=== PATIENT | male | born 1960 | race Caucasian/White ===

== ENCOUNTER 2023-11-29 16:47 | Observation (INO) ==
--- NOTE | 2023-11-29 16:55 | ED Triage Note ---
Date of Service November 29, 2023 Provider in Triage Author: Tito Harris. History of Present Illness This patient was briefly evaluated while in triage. An abbreviated physical exam was performed. This patient is a 63-year-old Male who presents to the ED for evaluation of left lateral chest pain, left arm pain, left jaw pain that began 3 hours ago. Typing on computer when the symptoms began. No dyspnea. Recently had 3 stents placed in [place] 2 weeks ago urgently. Physical Exam CONSTITUTIONAL: in no acute pain or distress, resting comfortably SKIN: pink, warm, dry RESPIRATORY: in no respiratory distress Initial orders for labs and / or imaging were placed and patient was placed into an exam room. Please see further documentation for the full ED course.
[2023-11-29 17:19] LABS: Basophils # (auto) 0.06 K/uL (0.00-0.20); Basophils % (auto) 0.6 %; Eosinophils # (auto) 0.21 K/uL (0.00-0.50); Eosinophils % (auto) 2.2 %; Hematocrit (blood only) 43.4 % (42.0-52.0); Hemoglobin 14.2 g/dl (14.0-18.0); Immature Granulocytes # (auto) 0.03 K/uL (0.01-0.20); Immature Granulocytes % (auto) 0.3 %; Lymphocytes # (auto) 2.94 K/uL (1.20-3.40); Lymphocytes % (auto) 31.1 %; Mean Corpuscular Hemoglobin 27.9 pg (25.0-34.0); Mean Corpuscular Hgb Conc 32.7 g/dL (32.0-36.0); Mean Corpuscular Volume 85.3 fL (80.0-100.0); Mean Platelet Volume 10.5 fL (9.4-12.4); Monocytes # (auto) 0.83 K/uL (0.11-0.59); Monocytes % (auto) 8.8 %; Neutrophils # (auto) 5.39 K/uL (1.40-6.50); Platelet Count 190 K/uL (130-400); RDW Coefficient of Variation 12.5 % (11.5-14.5); RDW Standard Deviation 38.6 fL (36.4-46.3); Red Blood Count 5.09 M/uL (4.70-6.10); White Blood Count 9.46 K/ul (4.8-10.8)
[2023-11-29] MEDS: NITROGLYCERIN 2% OINTMENT 30GM TUBE EXT STA (17:31)
[2023-11-29] MEDS: NITROGLYCERIN 2% OINTMENT 30GM TUBE EXT ONE (17:32)
[2023-11-29 17:37] LABS: Albumin Globulin Ratio 1.4 (0.9-2); Albumin Level 4.4 gm/dl (3.4-5.0); BUN Creatinine Ratio 15.8 (10-20); Bilirubin,Total 0.5 mg/dl (0.2-1.0); Calcium 9.7 mg/dl (8.6-10.3); Creatinine Clr Calc Pharmacy 148.8 ml/min; Est GFR (Non-African American) 95.7 ml/min; Globulin 3.2 gm/dl (2.5-4.0); Magnesium 2.1 mg/dl (1.7-2.4); Potassium 4.1 mmol/L (3.5-5.1); Total Protein 7.6 gm/dl (6.0-8.3)
--- NOTE | 2023-11-29 17:38 | XRay Report ---
SINGLE VIEW CHEST CLINICAL HISTORY: Atypical chest pain. FINDINGS: An AP, portable, upright chest radiograph is obtained. No prior studies are available for c omparison at the time of dictation. The heart is enlarged. The pulmonary vasculature is noncongested. The lungs and pleural spaces are clear. No pneumothorax is seen. The bony thorax is grossly intact. IMPRESSION: Cardiomegaly with no active disease in the chest. ACT 112: Negative or not required by law. Electronically signed by: Lisandro Bae M.D. 11/29/2023 5:36 PM
[2023-11-29 17:42] LABS: Troponin I High Sensitivity 10.4 pg/ml (0-20)
[2023-11-29 17:46] LABS: Partial Thromboplastin Ratio 0.9; Partial Thromboplastin Time 25 Seconds (21-31); Prothrombin Time 10.8 Seconds (9.0-12.0)
--- NOTE | 2023-11-29 17:51 | Emergency Department Note ---
Impression & Plan Chest pain, History of coronary artery disease, S/P coronary artery stent placement ED Provider Note NAME: TAE DONALD AGE: 63 SEX: M : 1960 ARRIVES VIA: Walk-In INFORMANT: [Patient] ED PROVIDER(S): [Lisandro Miller MD] CHIEF COMPLAINT: Chest pain HISTORY OF PRESENT ILLNESS: The patient is a 63-year-old male who states that he has had about 3 hours of chest pain that began while he was sitting. The pain does not worsen with exertion but he does feel some pain in the left jaw and a slight amount of numbness to the left hand. There is no shortness of breath, no nausea, there is no sweating. Patient states that he had similar pain 2 weeks ago and was found to have occlusion of one of his coronary stents. He had 3 stents placed during the hospitalization. He currently has 6 total stents. There has been no cough or congestion. No fall or trauma. He states that he was to be prescribed nitroglycerin but has not yet started the medication. He is currently on aspirin and Plavix. He is not followed by cardiology yet, he just moved to the area. PMHx/PSHx/Social Hx: See Below PHYSICAL EXAM: GENERAL: Patient is in no acute distress. HEENT: No acute trauma, normocephalic atraumatic, mucous membranes moist, no nasal congestion. NECK: No stridor, no adenopathy, no meningismus, trachea is midline. LUNGS: Clear to auscultation bilaterally, no wheeze, no rhonchi, breath sounds equal. HEART: Without murmurs gallops or rubs, regular rate and rhythm. Chest: Nontender chest wall. ABDOMEN: Soft, nontender, no peritonitis. EXTREMITIES: No cyanosis, full range of motion of all the joints without pain or difficulty. NEUROLOGIC: Oriented x 3, no acute motor or sensory deficits, no focal weakness. SKIN: No jaundice, no diaphoresis. DIFFERENTIAL DIAGNOSIS: ME, angina, musculoskeletal pain, anemia, electrolyte imbalance, aortic dissection, among others. EMERGENCY DEPARTMENT PROCEDURES: MEDICAL DECISION MAKING: There is no leukocytosis or concerning anemia. There is a normal platelet count. No coagulopathy. No renal failure or significant electrolyte abnormality. No concerning liver enzyme elevation. No evidence for pancreatitis. Chest x-ray shows some cardiomegaly, no pneumonia or pneumothorax. ECG shows a sinus rhythm with an occasional PVC, no acute ischemia. Cardiac enzyme testing x 1 is not consistent with acute cardiac injury. The patient presents with chest pain reminiscent of previous angina. He received 2 L of nitroglycerin paste, he has had resolution of symptoms. I do believe the patient requires a hospital stay for further workup. He just had 3 coronary stents placed. He presents with chest pain reminiscent of his previous anginal discomfort. The patient is aware of the need for the hospital stay, I did speak with case management, the on-call hospitalist was consulted. Prior/Outside records/notes reviewed: None ECG per my interpretation: Indication was chest pain. The ECG shows a sinus rhythm with an occasional PVC. The rate is 74. There is no ST elevation, QTc is 419. Continuous Cardiac Monitoring per my interpretation: An order was placed for continuous cardiac monitoring. The monitor shows a rate of 74 with normal sinus rhythm. Imaging/x-ray results per my interpretation: Chest x-ray does not show mediastinal widening, pneumonia or pneumothorax. Some cardiomegaly was seen. Chronic Medical/Social conditions affecting care: Coronary artery disease. Care/Management discussed with: Case management, the on-call hospitalist. Level of care consideration(s): After review of the information above and other included data: --I believe the patient requires escalation of care to admission DISPOSITION: Admission with cardiology consult Past Med/Surg History Medical History History of coronary artery disease Surgical History S/P coronary artery stent placement Social History Smoking Status: Never smoker Feels Safe at Home: Yes Results & Data (ED) Vital Signs Vital Signs - 24 hr 11/29/23 16:54 11/29/23 17:01 11/29/23 17:06 Temperature 36.9 C Temperature Source Oral Pulse Rate 71 Pulse Rate [Apical] 72 Respiratory Rate 18 19 Respiratory Effort / Characteristics Non-Labored Non-Labored Spontaneous Non-Labored Respiratory Depth Normal Normal Normal Respiratory Pattern Regular Blood Pressure 167/105 H Blood Pressure [Right Arm] 176/103 H Blood Pressure Mean 125 Blood Pressure Mean [Right Arm] 127 Pulse Oximetry 95 97 Oxygen Delivery Method Room Air Room Air Sepsis Recent Fever Within 48 Hours No Sepsis New/Unexplained Change in Mental Status No Sepsis Action Taken by Nursing No Action Required 11/29/23 17:32 11/29/23 17:39 Temperature Temperature Source Pulse Rate 74 Pulse Rate [Apical] 66 Respiratory Rate 15 Respiratory Effort / Characteristics Non-Labored Respiratory Depth Normal Respiratory Pattern Regular Blood Pressure Blood Pressure [Right Arm] 175/85 H Blood Pressure Mean Blood Pressure Mean [Right Arm] 115 Pulse Oximetry 96 Oxygen Delivery Method Sepsis Recent Fever Within 48 Hours Sepsis New/Unexplained Change in Mental Status Sepsis Action Taken by Custodial Medications Current Medication List: was personally reviewed by me Laboratory Data Attestation: I reviewed the patient's lab results. 11/29/23 17:04 11/29/23 17:04 Lab Results 11/29/23 Range/Units 17:04 WBC 9.46 (4.8-10.8) K/ul RBC 5.09 (4.70-6.10) M/uL Hgb 14.2 (14.0-18.0) g/dl Hct 43.4 (42.0-52.0) % MCV 85.3 (80.0-100.0) fL MCH 27.9 (25.0-34.0) pg MCHC 32.7 (32.0-36.0) g/dL RDW Std Deviation 38.6 (36.4-46.3) fL RDW Coeff of Priscilla 12.5 (11.5-14.5) % Plt Count 190 (130-400) K/uL MPV 10.5 (9.4-12.4) fL Immature Gran % (Auto) 0.3 % Neut % (Auto) 57.0 % Lymph % (Auto) 31.1 % [place] % (Auto) 8.8 % Eos % (Auto) 2.2 % Baso % (Auto) 0.6 % Neut # (Auto) 5.39 (1.40-6.50) K/uL Lymph # (Auto) 2.94 (1.20-3.40) K/uL [place] # (Auto) 0.83 H (0.11-0.59) K/uL Eos # (Auto) 0.21 (0.00-0.50) K/uL Baso # (Auto) 0.06 (0.00-0.20) K/uL Immature Gran # (Auto) 0.03 (0.01-0.20) K/uL PT 10.8 (9.0-12.0) Seconds INR 1.0 (0.9-1.1) APTT 25 (21-31) Seconds PTT Ratio 0.9 Sodium 138 (136-145) mmol/L Potassium 4.1 (3.5-5.1) mmol/L Chloride 106 (98-107) mmol/L Carbon Dioxide 26 (21-32) mmol/L Anion Gap 6 (3-11) BUN 12 (6-23) mg/dl Creatinine 0.76 (0.6-1.4) mg/dl Est Cr Clr Drug Dosing 148.8 ml/min Est GFR ( Amer) 111.0 ml/min Est GFR (Non-Af Amer) 95.7 ml/min BUN/Creatinine Ratio 15.8 (10-20) Glucose 118 H (70-99(Fasting)) mg/dl Calcium 9.7 (8.6-10.3) mg/dl Magnesium 2.1 (1.7-2.4) mg/dl Total Bilirubin 0.5 (0.2-1.0) mg/dl AST 16 (13-39) U/L ALT 22 (7-52) U/L Alkaline Phosphatase 72 (34-104) U/L Troponin I High Sens 10.4 (0-20) pg/ml Total Protein 7.6 (6.0-8.3) gm/dl Albumin 4.4 (3.4-5.0) gm/dl Globulin 3.2 (2.5-4.0) gm/dl Albumin/Globulin Ratio 1.4 (0.9-2) Lipase 31 (11-82) U/L Administered Medications Discontinued Medications Nitroglycerin (Nitroglycerin 2% Ointment 30gm Tube) Confirm Administered Dose 36 inch EXT .STK-MED ONE Stop: 11/29/23 17:12 Last Admin: 11/29/23 17:32 Dose: Not Given Documented By: DORIE Nitroglycerin (Nitroglycerin 2% Ointment 30gm Tube) 2 inch EXT NOW STA Stop: 11/29/23 17:28 Last Admin: 11/29/23 17:31 Dose: 2 inch Documented By: BRJ Imaging Data Radiologist's Impression: Chest X-Ray 11/29/23 16:55 SINGLE VIEW CHEST CLINICAL HISTORY: Atypical chest pain. FINDINGS: An AP, portable, upright chest radiograph is obtained. No prior studies are available for comparison at the time of dictation. The heart is enlarged. The pulmonary vasculature is noncongested. The lungs and pleural spaces are clear. No pneumothorax is seen. The bony thorax is grossly intact. IMPRESSION: Cardiomegaly with no active disease in the chest. ACT 112: Negative or not required by law. Electronically signed by: Lisandro Bae M.D. 11/29/2023 5:36 PM Discharge Plan Visit Data Chief Complaint: Chest Pain Stated Complaint: CHEST PAIN,HEART STENT PUT IN 2WKS AGO ED Provider: Lisandro Miller Discharge Problem: Chest pain, History of coronary artery disease, S/P coronary artery stent placement Patient Disposition: Admitted As Inpatient Condition: Fair Forms Stand Alone Forms: [facility] Referrals Referrals: PCP,NO [Physician] - Discharge Problem: Chest pain Qualifiers: Chest pain type: unspecified Qualified Code(s): R07.9 - Chest pain, unspecified
--- NOTE | 2023-11-29 18:13 | History & Physical Report ---
Date of Service November 29, 2023 Assessment & Plan (1) Chest pain: Plan: Pt is a 63 yo male with PMH of CAD s/p 6 stents (3 placed 9 years ago with first MD, 3 placed 2 weeks ago after second MD), HTN, and DM presenting due to chest pain. Chest pain - in the ER, pt was hemodynamically stable with hypertension; all lab work WNL - EKG showed sinus rhythm w/ occasional PVCs; no ST changes- continue EKGs PRN with chest pain - CXR showed cardiomegaly - no hx of echo in system, although pt states he had one 2 weeks prior to his stents- per pt, this showed an enlarged compartment of his heart and calcification of his mitral valve but normal function of his heart; echo ordered for AM - first trop negative at 10; repeat at 2 hrs and trend to peak q6hr if elevated - continue home plavix, carvedilol, atorvastatin and lisinopril - cardiology consult placed as pt needing to establish with local cardiology; pending clinical course, discussion may be needed concerning possible cath - trend CBC, BMP, and lipid panel ordered for AM Type 2 DM - pt states his A1c has been fluctuating between 6.3-7.0%; A1c ordered for AM - will hold home dapagliflozin and ozempic - will cover with SSI; may need to add long acting if BS uncontrolled/requiring large amounts of short acting insulin Diet: heart healthy, NPO at midnight VTE ppx: deferring given presumed short hospital stay; if prolonged, would add chemoppx Code: full; pt's is medical decision maker if pt unable to make his own decisions Dispo: med/tele (2) S/P coronary artery stent placement: (3) History of coronary artery disease: (4) Type 2 diabetes mellitus: (5) PEDRO (obstructive sleep apnea): Plan: CPAP HS History of Present Illness Chief Complaint: chest pain Primary Care Provider: NO PCP Pt is a 63 yo male with PMH of CAD s/p 6 stents (3 placed 9 years ago with first MD, 3 placed 2 weeks ago after second MD), HTN, and DM presenting due to chest pain. The pt noted that his chest pain started around 2PM today. He was working on a computer when it started. The pain was mild and came with left sided jaw discomfort and left arm tingling/numbness. He denies N/V, sweating, lightheadedness, or dizziness. The pain did not worsen with exertion, but this pain was very similar to his pain a few weeks ago so he wanted to be evaluated. Of note, pt's most recent stent placement was done at a hospital in [place] where he currently lives. Him and his are moving to the [facility] in March of this year. In the ER, the pt was given nitro. This relieved his pain. Allergies Allergy/AdvReac Type Severity Reaction Status Date / Time No Known Allergies Allergy Unverified 11/29/23 19:03 Home Medications Medication Instructions Recorded Confirmed Type aspirin 11/29/23 History atorvastatin 20 mg tablet 40 mg PO HS 11/29/23 11/29/23 History carvedilol 6.25 mg tablet 6.25 mg PO BID 11/29/23 11/29/23 History cholecalciferol (vitamin D3) 25 0 mcg PO DAILY 11/29/23 11/29/23 History mcg (1,000 unit) tablet (Vitamin D3) clopidogrel 75 mg tablet 75 mg PO QAM 11/29/23 11/29/23 History coenzyme Q10 100 mg capsule 0 mg PO DAILY 11/29/23 11/29/23 History (CoQ-10) dapagliflozin propanediol 10 mg 10 mg PO QAM 11/29/23 11/29/23 History tablet lisinopril 10 mg tablet 10 mg PO QAM 11/29/23 11/29/23 History gpdaayvbhznu-qyppadaa-bbtudo 1 tab PO DAILY 11/29/23 11/29/23 History tablet (Multivitamin 50 Plus tablet) omega-3 fatty acids 1,000 mg 2,000 mg PO DAILY 11/29/23 11/29/23 History capsule semaglutide 2 mg/dose (8 mg/3 mL) 2 mg subcut .Q7DAYS 11/29/23 11/29/23 History subcutaneous pen injector (Ozempic) tamsulosin 0.4 mg capsule 0.4 mg PO QPM 11/29/23 11/29/23 History turmeric 400 mg capsule 400 mg PO DAILY 11/29/23 11/29/23 History Past Med/Surg History Medical History (Updated 11/30/23 @ 08:24 by Parviz Reyes MD) PEDRO (obstructive sleep apnea) History of coronary artery disease Surgical History S/P coronary artery stent placement Social History Smoking Status: Never smoker Second Hand Exposure: No; Do You Dip or Chew Tobacco: No; Hx Alcohol Use: No Hx Substance Use: Yes Last Used Substance: Days (ago) Last Used Substance Other:: x1 week ago Preferred Language: Azeri Communication Ability: Effective 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 No rhonchi, wheezes, or crackles. No increased work of breathing GI: soft, nondistended, nontender, + bowel sounds MSK: no gross deformities noted Skin: warm, dry, no rashes Neuro: alert, oriented, no FND noted Psych: mood and affect congruent Results & Data Results & Data Vital Signs (Past 12 Hours) Vital Signs Temp Pulse Pulse Resp BP BP Pulse Ox 11/29/23 17:39 74 11/29/23 17:32 66 15 175/85 H 96 11/29/23 17:06 72 19 176/103 H 97 11/29/23 16:54 36.9 C 71 18 167/105 H 95 O2 Del Method 11/29/23 17:39 11/29/23 17:32 11/29/23 17:06 Room Air 11/29/23 16:54 Room Air Supervising Physician Co-Signing Physician Notes I personally saw and examined the patient. I verified all fernando points and agree with resident physician Dr Jade Gates, with the following exceptions and/or additions: 63 year old male with known coronary artery disease presents to the ER with chest pain. Started at 2pm and lasted until relieved with nitroglycerin in the ER around 5pm. O/E A&Ox3, HS RRR, no murmurs, Chest CTAB, Abdo SNT, no pedal edema A/P Chest pain - serial troponins, TTE, stop nitro paste to see if pain/BP recurs, consult cardiology to determine if further workup recommended in the morning. Coronary artery disease - ASA, clopidogrel, carvedilol, lisinopril, atorvastatin Resident Activity Tracking Resident Involvement: Resident Care Provided Care Provided: Adult [facility] Medicine (1) Chest pain Chest pain type: unspecified Qualified Code(s): R07.9 - Chest pain, unspecified
[2023-11-29] MEDS ORDERED: MELATONIN 3 MG TAB PO PRN (19:10)
[2023-11-29] MEDS ORDERED: ONDANSETRON INJ 2 MG/ML 2 ML VIAL IV PRN (19:10)
[2023-11-29] MEDS ORDERED: ACETAMINOPHEN 325 MG TAB PO PRN (19:10)
[2023-11-29] MEDS ORDERED: DEXTROSE 50% 50 ML SYRINGE IV PRN (22:18)
[2023-11-29] MEDS ORDERED: CARBOHYDRATES FOR HYPOGLYCEMIA PO PRN (22:18)
[2023-11-29] MEDS ORDERED: GLUCAGON FOR INJ 1 MG VIAL SQ PRN (22:18)
[2023-11-29] MEDS ORDERED: GLUCOSE 10 TAB/TUBE PO PRN (22:18)
[2023-11-29] MEDS ORDERED: GLUCOSE 40% GEL 15 GM TUBE PO PRN (22:18)
[2023-11-29] MEDS: carvediloL 6.25 MG TAB PO SCH (23:07)
[2023-11-29] MEDS: ATORVASTATIN 40 MG TAB PO SCH (23:07)
[2023-11-29] MEDS: TAMSULOSIN HCL 0.4 MG CAP PO SCH (23:08)
[2023-11-29] MEDS: INSULIN ASPART PER UNIT CHARGE SC SCH (23:09)
[2023-11-30 06:05] LABS: Hematocrit (blood only) 37.8 % (42.0-52.0); Hemoglobin 12.8 g/dl (14.0-18.0); Mean Corpuscular Hgb Conc 33.9 g/dL (32.0-36.0); Mean Corpuscular Volume 85.5 fL (80.0-100.0); Mean Platelet Volume 10.9 fL (9.4-12.4); Platelet Count 171 K/uL (130-400); RDW Coefficient of Variation 12.7 % (11.5-14.5); RDW Standard Deviation 39.3 fL (36.4-46.3); Red Blood Count 4.42 M/uL (4.70-6.10); White Blood Count 7.56 K/ul (4.8-10.8)
[2023-11-30 06:29] LABS: BUN Creatinine Ratio 19.4 (10-20); Calcium 8.9 mg/dl (8.6-10.3); Chol HDL Ratio 2.9 (0-5); Creatinine Clr Calc Pharmacy 181.4 ml/min; Est GFR (African American) 120.7 ml/min; Est GFR (Non-African American) 104.1 ml/min; Potassium 3.9 mmol/L (3.5-5.1)
[2023-11-30 06:34] LABS: Troponin I High Sensitivity 9.3 pg/ml (0-20)
--- NOTE | 2023-11-30 07:50 | Hospitalist Progress Note ---
Date of Service November 30, 2023 Assessment & Plan (1) Chest pain: Plan: Pt is a 63 yo male with PMH of CAD s/p 6 stents (3 placed 9 years ago with first [place], 3 placed 2 weeks ago), HTN, and DM presenting due to chest pain. Chest pain - Vitals stable; all lab work WNL, including lipids and troponin x4. - EKG showed sinus rhythm w/ occasional PVCs; no ST changes- continue EKGs PRN with chest pain - CXR showed cardiomegaly - no hx of echo in system, will obtain echo today. - continue home DAPT, carvedilol, high dose atorvastatin and lisinopril - cardiology consult placed as pt needing to establish with local cardiology; pending clinical course, discussion may be needed concerning possible cath Type 2 DM - pt states his A1c has been fluctuating between 6.3-7.0%; A1c ordered for AM - will hold home dapagliflozin and ozempic - will cover with SSI; may need to add long acting if BS uncontrolled/requiring large amounts of short acting insulin Diet: heart healthy, NPO at midnight VTE ppx: deferring given presumed short hospital stay; if prolonged, would add chemoppx Code: full; pt's is medical decision maker if pt unable to make his own decisions Dispo: med/tele (2) S/P coronary artery stent placement: (3) History of coronary artery disease: (4) Type 2 diabetes mellitus: Admission and Anticipated Discharge Date Admission Date: November 29, 2023 Subjective Patient doing well this morning states that he still has some minor paresthesia of the jaw and left arm but no chest pain or shortness of breath, nausea, diaphoresis (which he had when he had his IA). 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 He has a history of IA with 3 stents and recently had the stents replaced 2 weeks prior with the cardiology group down in [place]. Review of Systems Review of Systems: As per HPI Physical Exam Constitutional: WD/WN, vitals as above Eyes: PERRL, conjunctivae normal, anicteric sclerae Respiratory: normal respiratory effort, lungs clear to auscultation Cardiovascular: RRR, no murmur, no edema Gastrointestinal (Abdomen): normal bowel sounds, soft, nontender, no hepatosplenomegaly Psychiatric: A+Ox3, euthymic affect Results & Data Results & Data Vital Signs (Past 12 Hours) Vital Signs Temp Pulse Pulse Resp BP BP Pulse Ox 11/30/23 07:00 67 11/30/23 03:19 36.7 C 64 18 123/64 95 11/29/23 22:15 36.5 C 62 18 137/81 94 11/29/23 22:15 36.4 C L 62 20 137/81 94 11/29/23 22:13 58 L 11/29/23 22:00 11/29/23 21:21 64 16 106/76 93 11/29/23 21:00 65 11/29/23 20:00 68 17 127/83 98 O2 Del Method 11/30/23 07:00 11/30/23 03:19 Room Air 11/29/23 22:15 Room Air 11/29/23 22:15 Room Air 11/29/23 22:13 11/29/23 22:00 Room Air 11/29/23 21:21 Room Air 11/29/23 21:00 11/29/23 20:00 Resident Activity Tracking Resident Involvement: Resident Care Provided Care Provided: Adult Hospital Medicine (1) Chest pain Chest pain type: unspecified Qualified Code(s): R07.9 - Chest pain, unspecified
[2023-11-30 08:09] LABS: Estimated Average Glucose 157 mg/dl; Hemoglobin A1C 7.1 % (4.5-5.6)
--- NOTE | 2023-11-30 08:39 | Billing Data ---
Date of Service November 29, 2023 Coding Level of Care Code 08622 INT INP/OBS CARE
--- NOTE | 2023-11-30 08:57 | Cardiology Consultation ---
Date of Consultation November 30, 2023 Assessment & Plan (1) Chest pain: (2) History of coronary artery disease: Plan 1. Chest pain: Unclear etiology. Certainly not related to an acute coronary syndrome or ischemia. Symptoms were extended in duration without any biomarker elevation. 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 Other potential etiologies would include microvascular spasm, gastrointestinal, pulmonary embolus or aortic dissection. Most concerning complications could be excluded with CT scan. 2. Coronary disease: According to the patient his most recent intervention was not performed in the setting of an NV. it is possible that progression of his coronary disease was discovered incidentally although his description of the LAD suggests acute process. He is on an aggressive medical regimen for secondary prevention to include high- dose atorvastatin, dual anti-platelet therapy, an SG LT 2 inhibitor and carvedilol. 3. Hyperlipidemia: Lipid profile this morning quite favorable. No indication for more aggressive therapy or Vascepa 4. Hypertension: Blood pressure is mildly elevated during his admission. Consideration could be given to intensifying his antihypertensive regimen with the addition of nitrates that this reduces his symptoms or increasing lisinopril. History of Present Illness Reason for Consultation: Chest pain Requesting Physician: Kody Attending Physician: Samina Lee MD History of Present Illness The patient is a 63-year-old gentleman with a history of coronary disease having previously undergone percutaneous intervention on 2 occasions. Patient states that quite remotely he was discovered to have obstructive coronary disease involving 3 coronary arteries. He seemed competent that 1 of these was the right coronary and 1 was the left anterior descending, book was not definitive regarding the 3rd vessel. Percutaneous intervention was performed in the setting of a myocardial infarction at that time. He was followed longitudinally in appeared to do quite well until approximately 2 weeks ago when he had an episode of chest, arm and neck discomfort. The symptoms prompted a hospital evaluation which involve coronary angiography. By his description he was discovered to have some InStent restenoses involving all 3 vessels with 90% stenosis involving the prior LAD stent. Additional lesions were found in the LAD and perhaps an acute lesion by his description. Three stents were placed in that vessel by report. The patient stated that subsequent to his intervention he felt quite well. He refrain from significant exertion for 1 week but began performing his usual activity over the past week. He did not describe recurrent symptoms chest discomfort with activity. No other symptoms of chest discomfort. In the past he did have occasional chest pains which were sharp and fleeting in nature. These have not returned. Yesterday around 2:00 p.m. the patient began to notice a sense of general chest discomfort associated with arm and jaw discomfort. He tried some conservative measures such as resting and lying down. However, his symptoms persisted and he presented to our facility for evaluation. They are not appear to be associated breathing difficulty, dizziness or sense of palpitation. He describes his symptoms as similar to those he has had in the past prior to coronary intervention. In the emergency room he was administered topical nitroglycerin with some improvement in his symptoms. Over the course of the evening he felt well. This morning the nitroglycerin was removed and he states that his symptoms appear to be mild but present at this time. He has been ambulatory around his room over the course of the evening without recurrent symptoms, dizziness or palpitation. In general he is an active individual who does not perform vigorous exercise on a routine basis. However, he does need to carry heavy items and can perform routine outdoor activity without symptom. Allergies Allergy/AdvReac Type Severity Reaction Status Date / Time No Known Allergies Allergy Unverified 11/29/23 19:03 Home Medications Medication Instructions Recorded Confirmed Type aspirin 11/29/23 History atorvastatin 20 mg tablet 40 mg PO HS 11/29/23 11/29/23 History carvedilol 6.25 mg tablet 6.25 mg PO BID 11/29/23 11/29/23 History cholecalciferol (vitamin D3) 25 0 mcg PO DAILY 11/29/23 11/29/23 History mcg (1,000 unit) tablet (Vitamin D3) clopidogrel 75 mg tablet 75 mg PO QAM 11/29/23 11/29/23 History coenzyme Q10 100 mg capsule 0 mg PO DAILY 11/29/23 11/29/23 History (CoQ-10) dapagliflozin propanediol 10 mg 10 mg PO QAM 11/29/23 11/29/23 History tablet lisinopril 10 mg tablet 10 mg PO QAM 11/29/23 11/29/23 History lblzmopciosw-qmwhdypd-fjteoh 1 tab PO DAILY 11/29/23 11/29/23 History tablet (Multivitamin 50 Plus tablet) omega-3 fatty acids 1,000 mg 2,000 mg PO DAILY 11/29/23 11/29/23 History capsule semaglutide 2 mg/dose (8 mg/3 mL) 2 mg subcut .Q7DAYS 11/29/23 11/29/23 History subcutaneous pen injector (Ozempic) tamsulosin 0.4 mg capsule 0.4 mg PO QPM 11/29/23 11/29/23 History turmeric 400 mg capsule 400 mg PO DAILY 11/29/23 11/29/23 History Patient History Medical History (Updated 11/30/23 @ 08:24 by Parviz Reyes MD) PEDRO (obstructive sleep apnea) History of coronary artery disease Surgical History S/P coronary artery stent placement Social History Smoking Status: Never smoker Second Hand Exposure: No; Do You Dip or Chew Tobacco: No; Hx Alcohol Use: No Hx Substance Use: Yes Last Used Substance: Days (ago) Last Used Substance Other:: x1 week ago Preferred Language: Maldivian Communication Ability: Effective Planning Assistant Required: No Beliefs That Will Affect Care: None Current Living Situation: Spouse Other Information That Helps Us Care for You: No Feels Safe at Home: Yes Safety Concerns: Feels Safe At This Time Assistive Devices: CPAP Review of Systems Review of Systems: Per HPI. History of obstructive sleep apnea using CPAP. No pleuritic chest pain. No difficulty using left arm. Physical Exam Physical Exam: The patient is alert and oriented. Mood and affect appeared normal. He answered all questions appropriately. HEENT: Pupils are equal and reactive to light and accommodation. Extraocular movements are intact. The sclerae are anicteric. Neuro: Cranial nerves intact. Lungs: Clear to auscultation bilaterally. He has good air movement without use of accessory muscles. No rales wheezes or rhonchi. Cardiac: Heart demonstrates a regular rate and rhythm. Normal S1 and S2. No murmurs on examination. Pulses: The patient has palpable radial pulses bilaterally that are equal in intensity Extremities: There was no evidence of hypoperfusion. There is no cyanosis or clubbing. There is no edema. Skin: I did not appreciate any rashes on examination today. Results & Data Vital Signs (Past 12 Hours) Vital Signs Temp Pulse Pulse Resp BP BP Pulse Ox 11/30/23 07:57 36.5 C 93 H 16 156/82 H 97 11/30/23 07:00 67 11/30/23 03:19 36.7 C 64 18 123/64 95 11/29/23 22:15 36.5 C 62 18 137/81 94 11/29/23 22:15 36.4 C L 62 20 137/81 94 11/29/23 22:13 58 L 11/29/23 22:00 11/29/23 21:21 64 16 106/76 93 11/29/23 21:00 65 O2 Del Method 11/30/23 07:57 Room Air 11/30/23 07:00 11/30/23 03:19 Room Air 11/29/23 22:15 Room Air 11/29/23 22:15 Room Air 11/29/23 22:13 11/29/23 22:00 Room Air 11/29/23 21:21 Room Air 11/29/23 21:00 Laboratory Results Abnormal Lab Results 11/29/23 11/29/23 11/29/23 17:04 19:12 22:27 WBC 9.46 RBC 5.09 Hgb 14.2 Hct 43.4 MCV 85.3 MCH 27.9 MCHC 32.7 RDW Std Deviation 38.6 RDW Coeff of Priscilla 12.5 Plt Count 190 MPV 10.5 Immature Gran % (Auto) 0.3 Neut % (Auto) 57.0 Lymph % (Auto) 31.1 Monona % (Auto) 8.8 Eos % (Auto) 2.2 Baso % (Auto) 0.6 Neut # (Auto) 5.39 Lymph # (Auto) 2.94 Monona # (Auto) 0.83 H Eos # (Auto) 0.21 Baso # (Auto) 0.06 Immature Gran # (Auto) 0.03 PT 10.8 INR 1.0 APTT 25 PTT Ratio 0.9 Sodium 138 Potassium 4.1 Chloride 106 Carbon Dioxide 26 Anion Gap 6 BUN 12 Creatinine 0.76 Est Cr Clr Drug Dosing 148.8 Est GFR ( Amer) 111.0 Est GFR (Non-Af Amer) 95.7 BUN/Creatinine Ratio 15.8 Glucose 118 H POC Glucose 117 H Estimat Average Glucose Hemoglobin A1c Calcium 9.7 Magnesium 2.1 Total Bilirubin 0.5 AST 16 ALT 22 Alkaline Phosphatase 72 Troponin I High Sens 10.4 10.8 Total Protein 7.6 Albumin 4.4 Globulin 3.2 Albumin/Globulin Ratio 1.4 Triglycerides Cholesterol LDL Cholesterol, Calc VLDL Cholesterol, Calc HDL Cholesterol Cholesterol/HDL Ratio Lipase 31 11/30/23 11/30/23 01:14 05:40 WBC 7.56 RBC 4.42 L Hgb 12.8 L Hct 37.8 L MCV 85.5 MCH 29.0 MCHC 33.9 RDW Std Deviation 39.3 RDW Coeff of Priscilla 12.7 Plt Count 171 MPV 10.9 Immature Gran % (Auto) Neut % (Auto) Lymph % (Auto) Monona % (Auto) Eos % (Auto) Baso % (Auto) Neut # (Auto) Lymph # (Auto) Monona # (Auto) Eos # (Auto) Baso # (Auto) Immature Gran # (Auto) PT INR APTT PTT Ratio Sodium 139 Potassium 3.9 Chloride 107 Carbon Dioxide 25 Anion Gap 7 BUN 12 Creatinine 0.62 Est Cr Clr Drug Dosing 181.4 Est GFR ( Amer) 120.7 Est GFR (Non-Af Amer) 104.1 BUN/Creatinine Ratio 19.4 Glucose 139 H POC Glucose 131 H Estimat Average Glucose 157 Hemoglobin A1c 7.1 H Calcium 8.9 Magnesium Total Bilirubin AST ALT Alkaline Phosphatase Troponin I High Sens 9.8 9.3 Total Protein Albumin Globulin Albumin/Globulin Ratio Triglycerides 108 Cholesterol 106 LDL Cholesterol, Calc 47 VLDL Cholesterol, Calc 22 HDL Cholesterol 37 Cholesterol/HDL Ratio 2.9 Lipase Diagnostic Findings Chest x-ray obtained the time of admission did not reveal any Acute cardiopulmonary process Echocardiogram performed today revealed preserved LV systolic function without regional wall motion abnormalities. No significant valvular heart disease. ECG Additional Comments: Admission reveals sinus rhythm with PVCs. Nonspecific ST and T-wave changes. PG Care Time/CCT Total # of Minutes Spent Total Time Spent with Patient: Total time spent is greater than 50% in coordination of care (as documented) at patient's floor/unit and/or counseling patient: Coding Level of Care Code 49404 INT INP/OBS CARE 3/75MIN Diagnoses Chest pain R07.9 Chest pain type: unspecified History of coronary artery disease Z86.79 (1) Chest pain Chest pain type: unspecified Qualified Code(s): R07.9 - Chest pain, unspecified
[2023-11-30] MEDS: CLOPIDOGREL BISULFATE 75 MG TAB PO SCH (09:43)
[2023-11-30] MEDS: lisinopril 10 MG TAB PO SCH (09:43)
[2023-11-30] MEDS: ASPIRIN 325 MG ECTAB PO SCH (09:43)
--- NOTE | 2023-11-30 11:16 | XCELERA ---
[id number]
[2023-11-30] MEDS: OPTIRAY 320 125ml IV ONE (11:36)
--- NOTE | 2023-11-30 11:49 | Electrocardiogram Report ---
Test Reason : Blood Pressure : / mmHG Vent. Rate : 074 BPM Atrial Rate : 074 BPM P-R Int : 180 ms QRS Dur : 094 ms QT Int : 378 ms P-R-T Axes : 016 -27 044 degrees QTc Int : 419 ms Sinus rhythm with occasional Premature ventricular complexes Minimal voltage criteria for LVH, may be normal variant Borderline ECG No previous ECGs available Confirmed by Brody Nuñez ([id number]) on 11/30/2023 11:49:01 AM Referred By: REFERRED SELF Confirmed By:Dain Nuñez
--- NOTE | 2023-11-30 12:46 | CT Scan Report ---
CT ANGIOGRAM OF THE CHEST COMBO CLINICAL HISTORY: Atypical chest pain. COMPARISON STUDY: Chest x-ray dated 11/29/2023. TECHNIQUE: Before and following the IV administration of 116 cc of Optiray 320, CT angiogram of the c hest was performed from the thoracic inlet to the upper abdomen utilizing the dissection protocol. Im ages are reviewed in the axial, sagittal, and coronal planes. 3-D MIPS images are created and assesse d. IV contrast was administered without complication. A dose lowering technique was utilized adherin g to the principles of ALARA. CT DOSE: 1956.11 mGy.cm FINDINGS: Thyroid: Normal in size and heterogeneous in attenuation. Thoracic aorta: No intramural hematoma is identified on the unenhanced series. The thoracic aorta is normal in caliber and demonstrates standard 3-vessel arch anatomy. No dissection is seen. The arch ve ssels are widely patent. Pulmonary vasculature: The pulmonary trunk is normal in caliber. There are no central filling defects identified in the pulmonary vessels to suggest pulmonary embolus. Note that this examination was not specifically protocoled to assess for pulmonary emboli. Heart: The heart is mildly enlarged noting trace pericardial effusion. The coronary arteries are dens yadira calcified. Lungs and pleural spaces: There is no airspace consolidation or pleural effusion. The trachea and cheyenne tral airways are clear. There are scattered calcified granulomas. A 5 mm pleural-based nodule in the right lower lobe as seen on image #121. A 3 mm right lower lobe nodule is seen on image #149. Mediastinum: There is no mediastinal lymphadenopathy. Lennie: Clear. Axillae: There is no axillary lymphadenopathy. Upper abdomen: Cholecystectomy clips are seen in the right upper quadrant. Partially visualized upper abdominal viscera is within normal limits. Skeletal structures: No lytic or blastic bony lesions are seen. Mild degenerative change is noted in the shoulders and spine. IMPRESSION: 1. Unremarkable CT angiogram of the thoracic aorta. 2. Mild cardiomegaly with advanced coronary artery atherosclerosis. 3. There is no airspace consolidation or pleural effusion. 4. Low suspicion pulmonary and pleural-based nodules measuring up to 5 mm. If warranted these can be followed as per the Fleischner criteria. See below. 5. Additional findings as above. Please refer to below summary of Fleischner criteria recommendations for follow-up of incidental CT n odules RoccoH Jeannie, Guidelines for management of small pulmonary nodules detected on CT scans: A keesha tement from the Fleischner Society, Radiology 237: [phone].) SOLID NODULES Solitary nodule size: <6 mm * low risk patients: no follow-up needed * high risk patients: optional CT at 12 months Solitary nodule size: 6-8 mm * low risk patients: follow-up at 6-12 months, then consider further follow-up at 18-24 months * high risk patients: initial follow-up CT at 6-12 months and then at 18-24 months if no change Solitary nodule size: >8 mm * either low or high risk patients - consider follow-up CT at 3 months, and/or CT-PET, and/or biopsy Multiple nodules size: <6 mm * low risk patients: no routine follow-up * high risk patients: optional CT at 12 months Multiple nodules size: 6-8 mm * low risk patients: follow-up at 3-6 months, then consider further follow-up at 18-24 months * high risk patients: follow-up at 3-6 months, then at 18-24 months if no change Multiple nodules size: >8 mm * low risk patients: follow-up at 3-6 months, then consider further follow-up at 18-24 months * high risk patients: follow-up at 3-6 months, then at 18-24 months if no change Note: newly detected indeterminate nodule in persons 35 years of age or older. * low risk patients: minimal or absent history of smoking and/or other known risk factors * high risk patients: history of smoking or of other known risk factors (e.g. first degree relative with lung cancer, or exposure to asbestos, radon, uranium) * if a nodule up to 8 mm is partly solid or is ground glass further follow-up is required after 24 m onths to exclude possible slow growing adenocarcinoma (RASTA) SUBSOLID NODULES Solitary pure ground-glass nodule * nodule size <6 mm - no CT follow-up required * nodule size >=6 mm - follow-up CT at 6-12 months, then every 2 years until 5 years Solitary part-solid nodule * nodule size <6 mm - no CT follow-up required * nodule size >=6 mm - follow-up CT at 3-6 months. If unchanged, and solid component remains <6 mm, then annual follow-up for 5 years Multiple subsolid nodules * nodule size <6 mm - follow-up CT at 3-6 months, consider further follow-up at 2 and 4 years if sta ble * nodule size >=6 mm - follow-up CT at 3-6 months, subsequent management based on the most suspiciou s nodule(s) ACT 112: Negative or not required by law. Electronically signed by: Lisandro Bae M.D. 11/30/2023 12:44 PM
--- NOTE | 2023-11-30 13:24 | Discharge Summary ---
Date of Service November 30, 2023 Admission HPI Per Admitting Provider Pt is a 63 yo male with PMH of CAD s/p 6 stents (3 placed 9 years ago with first UT, 3 placed 2 weeks ago after second UT), HTN, and DM presenting due to chest pain. The pt noted that his chest pain started around 2PM today. He was working on a computer when it started. The pain was mild and came with left sided jaw discomfort and left arm tingling/numbness. He denies N/V, sweating, lightheadedness, or dizziness. The pain did not worsen with exertion, but this pain was very similar to his pain a few weeks ago so he wanted to be evaluated. Of note, pt's most recent stent placement was done at a hospital in [place] where he currently lives. Him and his are moving to the [facility] in March of this year. In the ER, the pt was given nitro. This relieved his pain. Admission Exam Per Admitting Provider Constitutional: well appearing, no acute distress HEENT: normocephalic, no conjunctival injection CV: RRR, no murmur, no LE edema Respiratory: CTA bilaterally. No rhonchi, wheezes, or crackles. No increased work of breathing GI: soft, nondistended, nontender, + bowel sounds MSK: no gross deformities noted Skin: warm, dry, no rashes Neuro: alert, oriented, no FND noted Psych: mood and affect congruent Principal Diagnosis Chest pain Discharge Exam Constitutional WD/WN, vitals as above Eyes PERRL, conjunctivae normal, anicteric sclerae Respiratory normal respiratory effort, lungs clear to auscultation Cardiovascular RRR, no murmur, no edema Gastrointestinal (Abdomen) normal bowel sounds, soft, nontender, no hepatosplenomegaly Skin no rashes, warm and dry Psychiatric A+Ox3, euthymic affect Discharge Data Allergies Allergy/AdvReac Type Severity Reaction Status Date / Time No Known Allergies Allergy Unverified 11/29/23 19:03 Consultations 11/29/23 18:05 ED Decision to Admit Stat 11/29/23 19:10 Consult Cardiology Routine Ordered Studies 11/30/23 11:09 CTA chest dissec wo/w con [CT angio chest dissec wo/w con] Routine Hospital Course (1) Chest pain: (2) S/P coronary artery stent placement: (3) History of coronary artery disease: (4) Type 2 diabetes mellitus: Plan Pt is a 63 yo male with PMH of CAD s/p 6 stents (3 placed 9 years ago with first UT, 3 placed 2 weeks ago), HTN, and DM presenting due to chest pain. Chest pain - Vitals stable; all lab work WNL, including lipids and troponin x4. - EKG showed sinus rhythm w/ occasional PVCs; no ST changes- continue EKGs PRN with chest pain - CXR showed cardiomegaly - Cardiology consulted, -Echo without change from prior report. -not related to ACS or ischemia, other etiologies could be microvascular spasm, GI, aortic dissection -CTA chest without evidence for dissection or gross abnormalities. -Start imdur daily if microvascular spasm in nature. -Discharged patient home on imdur 30mg qAM. Refilled PRN SL nitro at patient's request. -continue home DAPT, carvedilol, high dose atorvastatin and lisinopril -Follow up with PCP and cardiology in [place] within next few weeks and then re-establish with cardiology here when he moves back to the area this summer. 2 Pulmonary nodules: -CTA with 2 pulmonary nodules 5mm and 3mm in size. -Per Fleischner criteria, low risk no routine follow up needed, if high risk f/u CT in 1 year. Total Time Total Time Spent Total Time Spent (In Minutes): Please see attending attestation. Discharge Plan Discharge Items Patient Disposition: Home - Self-Care Reason For Visit: CHEST PAIN Discharge Diagnosis: Chest pain Condition on Discharge: Fair Activity: Per Instructions section Non-emergency contact: Primary Care Provider and Manager Industrial Call non-emergency contact if: your symptoms worsen, your pain is worsening and your temperature is above 101 Follow-up/Referrals: HYACINTH CESPEDES [Other] Diet: Regular Addtl Attending Provider Instructions: You came to the hospital for symptoms concerning for a heart attack. After evaluation with ultrasound of your heart and blood work it was determined that this is likely not a heart attack. There could be several things causing this pain. One may be vasospasms of your coronary arteries after stenting. If it is vasospasms of the coronary arteries causing these symptoms we can add an agent to help dilate these vessels to prevent further spasm. This medication is called imdur and is a daily medication. Imdur will be a daily medication to take in the morning. It will be dosed at 30mg. If after several days the symptoms do not go down you could try increasing the dose to 60mg daily. Please follow up with your primary care doctor as well as cardiology outpatient within the next few weeks. If you have any worsening of your symptoms or development of nausea, vomiting, shortness of breath, lightheadedness, dizziness, or diffuse sweating please return to the emergency department. Pending Studies at Discharge: No Stand-Alone Forms: My [facility], Smoking Cessation Medications and DC Order Prescriptions: New isosorbide mononitrate 30 mg tablet extended release 24 hr 30 mg PO QAM Qty: 30 0RF nitroglycerin 0.3 mg tablet, sublingual 0.3 mg sublingual Q5M PRN (Reason: chest pain) Qty: 30 0RF Continued carvedilol 6.25 mg tablet 6.25 mg PO BID Rx Instructions: needs tonights dose atorvastatin 20 mg tablet 40 mg PO HS Rx Instructions: Will swith to rosuvastatin after done with script. clopidogrel 75 mg tablet 75 mg PO QAM tamsulosin 0.4 mg capsule 0.4 mg PO QPM lisinopril 10 mg tablet 10 mg PO QAM dapagliflozin propanediol 10 mg tablet 10 mg PO QAM Ozempic 2 mg/dose (8 mg/3 mL) pen injector 2 mg SUBCUT .Q7DAYS Rx Instructions: Sun omega-3 fatty acids 1,000 mg Capsule 2,000 mg PO DAILY Multivitamin 50 Plus Tablet 1 tab PO DAILY coenzyme Q10 [CoQ-10] 100 mg Capsule 0 mg PO DAILY cholecalciferol (vitamin D3) [Vitamin D3] 25 mcg (1,000 unit) Tablet 0 mcg PO DAILY Rx Instructions: 2 caps daily turmeric 400 mg Capsule 400 mg PO DAILY aspirin 324 mg Discharge Orders: Discharge Order (Routine); Ordered 11/30/23 Ordered By: Elijah Doran Admission Data Admit Date/Time: 11/29/23 19:10 Attending Provider: Samina Lee Admit Provider: Jade Gates Primary Care Provider: HYACINTH CESPEDES Other Providers: Parviz Reyes; Brody Nuñez Other Interventions: Discharge Summary Assessment (RN) Last Done: 11/30/23 13:33 Supervising Physician Co-Signing Physician Notes Attending Physician Supervision Note: I independently interviewed and examined the patient and verified the fernando history and physical, reviewed labs and image studies and agree with findings and care plan noted above. Resident Activity Tracking Resident Involvement: Resident Care Provided Care Provided: Adult [facility] Medicine
== END 2023-11-30 15:08 | disposition home or self-care (01) ==
LOC: ED 16:47 → INTOOBSV 19:10 → SUATTDRO 19:10 → 2W 19:10

== ENCOUNTER 2024-09-13 08:26 | Observation (INO) ==
--- NOTE | 2024-09-13 08:37 | Emergency Department Note ---
Impression & Plan Chest pain, High serum chloride ED Provider Note NAME: TAE DONALD AGE: 64 SEX: M : 1960 ARRIVES VIA: Walk-In INFORMANT: Patient ED PROVIDER(S): Juan Gracia DO CHIEF COMPLAINT: Chest pain HPI: Patient is a 64-year-old male with a past medical history of diabetes, MD, CAD with multiple stents and rein-stent stenosis who presents to the ER for exertional chest pain located on the left side of his chest. No shortness of breath. Associate with left arm and jaw pain. Symptoms are exertional and resolved with rest. He currently has a faint amount of chest pain due to walking in. He notes this feels like the last time he got stents. Denies any dysuria, urgency, or frequency. No other exacerbating or remitting factors. He did not take any nitro or aspirin prior to arrival. This has been going off and on since Saturday. ADDITIONAL HISTORY OBTAINED: Per HPI Chronic Medical/Social Conditions Affecting Care: Per HPI PAST MEDICAL HISTORY:See Below PAST SURGICAL HISTORY:See Below FAMILY HISTORY:See Below SOCIAL HISTORY:See Below HOME MEDICATIONS:See Below ALLERGIES:See Below VITALS:See Below PHYSICAL EXAMINATION: GENERAL: Sitting up in bed, alert, well appearing, well nourished, no distress, non-toxic EYE EXAM: normal conjunctiva. OROPHARYNX: no exudate, no erythema, lips, buccal mucosa, and tongue normal and mucous membranes are moist NECK: supple, no nuchal rigidity, no adenopathy, non-tender LUNGS: Clear to auscultation. Normal chest wall mechanics HEART: no murmurs, S1 normal and S2 normal ABDOMEN: abdomen soft, non-tender, normo-active bowel sounds, no masses, no rebound or guarding. BACK: Back is symmetrical on inspection and there is no deformity, no midline tenderness, no CVA tenderness. SKIN: no rashes and no bruising UPPER EXTREMITIES: upper extremities are grossly normal. LOWER EXTREMITIES: No pitting edema. NEURO EXAM: Normal sensorium, cranial nerves II-XII grossly intact, normal speech, no gross weakness of arms, no gross weakness of legs. MEDICAL DECISION MAKING: Patient is a 64-year-old male who presents to the ER for the above-stated complaint. IV was established and blood work was obtained. Labs show no significant leukocytosis or anemia. BMP with slightly elevated chloride at 108. LFTs bilirubin and troponin was negative. Lipase was normal. Patient was given aspirin and nitro. Pain resolved. Was exertional in nature. History of CAD and multiple stents. Patient is a high risk and consequently was discussed with the hospitalist for further evaluation management treatment. Consults/Care Managements Discussions: Per [facility] Triage Nursing notes reviewed. Limited review of prior medical records performed Vital Signs: reviewed and remarkable for no significant abnormalities Differential diagnosis: Cardiac ischemia, aortic dissection, pulmonary embolism, pneumothorax, pneumonia, pericarditis, myocarditis, esophageal rupture, GERD, cholecystitis, pancreatitis, musculoskeletal, as well as other pathologies. ER treatment provided: See below Diagnostics interpreted by me include EKG and cardiac monitoring as listed below: -Cardiac Monitoring: An order was placed for continuous cardiac monitoring. The monitor shows a rate of 62 with sinus rhythm. -ECG: Sinus rhythm rate of 63 Left axis No PVCs QTc 409 -Laboratory studies:Interpreted by me as stated above in MDM and shown below. Imaging studies: Xrays: As interpreted by me: Portable AP upright 1 view of the chest shows no focal infiltrate CTs show: none Procedures:none Critical Care: None Past Med/Surg History Problem List (Updated 09/13/24 @ 14:31 by Juan Gracia DO) High serum chloride (Acute) Chest pain (Acute) BPH (benign prostatic hyperplasia) Hyperlipidemia Exertional chest pain PEDRO (obstructive sleep apnea) Type 2 diabetes mellitus S/P coronary artery stent placement (Acute) History of coronary artery disease (Acute) Social History Smoking Status: Current some day smoker Tobacco Type: Cigars Second Hand Exposure: No; Do You Dip or Chew Tobacco: No; Hx Alcohol Use: No Hx Substance Use: Yes Last Used Substance: Days (ago) Last Used Substance Other:: x1 week ago Preferred Language: Montserratian Communication Ability: Effective Lead Mobile Developer Required: No Beliefs That Will Affect Care: None Current Living Situation: Spouse Feels Safe at Home: Yes Assistive Devices: CPAP Allergies Allergies Allergy/AdvReac Type Severity Reaction Status Date / Time No Known Allergies Allergy Unverified 11/29/23 19:03 Home Meds Home Medications Medication Instructions Recorded Confirmed aspirin 324 mg PO UD 11/29/23 09/13/24 atorvastatin 20 mg tablet 80 mg PO HS 11/29/23 09/13/24 carvedilol 6.25 mg tablet 6.25 mg PO BID 11/29/23 09/13/24 cholecalciferol (vitamin D3) 25 2,000 mcg PO DAILY 11/29/23 09/13/24 mcg (1,000 unit) tablet (Vitamin D3) clopidogrel 75 mg tablet 75 mg PO QAM 11/29/23 09/13/24 coenzyme Q10 100 mg capsule 100 mg PO DAILY 11/29/23 09/13/24 (CoQ-10) dapagliflozin propanediol 10 mg 10 mg PO QAM 11/29/23 09/13/24 tablet lisinopril 10 mg tablet 10 mg PO QAM 11/29/23 09/13/24 tkiqqexlpvyj-wlaxvexx-fiaffd 1 tab PO DAILY 11/29/23 09/13/24 tablet (Multivitamin 50 Plus tablet) omega-3 fatty acids 1,000 mg 1,000 mg PO DAILY 11/29/23 09/13/24 capsule tamsulosin 0.4 mg capsule 0.4 mg PO QPM 11/29/23 09/13/24 turmeric 400 mg capsule 400 mg PO DAILY 11/29/23 09/13/24 amlodipine 5 mg tablet 5 mg PO DAILY 09/13/24 09/13/24 betamethasone dipropionate 0.05 % 1 applic topical DIRECTED 09/13/24 09/13/24 topical cream fexofenadine 180 mg tablet 180 mg PO DAILY 09/13/24 09/13/24 magnesium 200 mg tablet 200 mg PO DAILY 09/13/24 09/13/24 tirzepatide 7.5 mg/0.5 mL 5 mg subcut WK 09/13/24 09/13/24 subcutaneous pen injector (Maximino) Previous Rx's Medication Instructions Recorded isosorbide mononitrate 30 mg 30 mg PO QAM #30 tabs 11/30/23 tablet,extended release 24 hr nitroglycerin 0.3 mg sublingual 0.3 mg sublingual Q5M PRN chest 11/30/23 tablet pain #30 tabs Results & Data (ED) Vital Signs Vital Signs - 24 hr 09/13/24 08:42 09/13/24 08:46 09/13/24 08:57 Temperature 36.6 C Temperature Source Oral Pulse Rate 72 59 L Pulse Rate from SpO2 Sensor 60 Pulse Rhythm Regular Pulse Strength Normal Respiratory Rate 21 18 Respiratory Effort / Characteristics Non-Labored Respiratory Depth Normal Respiratory Pattern Regular Blood Pressure 153/90 H Blood Pressure Mean 111 Blood Pressure Position Lying Pulse Oximetry 96 96 Oxygen Delivery Method Room Air Room Air Oxygen Flow Rate 96 Sepsis Recent Fever Within 48 Hours No Sepsis New/Unexplained Change in Mental Status N/A Sepsis Action Taken by Nursing No Action Required 09/13/24 08:57 09/13/24 09:00 09/13/24 09:00 Temperature Temperature Source Pulse Rate 64 Pulse Rate from SpO2 Sensor Pulse Rhythm Pulse Strength Respiratory Rate Respiratory Effort / Characteristics Respiratory Depth Respiratory Pattern Blood Pressure 131/78 Blood Pressure Mean 86 Blood Pressure Position Pulse Oximetry 96 Oxygen Delivery Method Room Air Oxygen Flow Rate Sepsis Recent Fever Within 48 Hours Sepsis New/Unexplained Change in Mental Status Sepsis Action Taken by Nursing 09/13/24 09:00 09/13/24 09:00 09/13/24 09:42 Temperature Temperature Source Pulse Rate 68 61 Pulse Rate from SpO2 Sensor 54 L 62 Pulse Rhythm Pulse Strength Respiratory Rate 17 18 Respiratory Effort / Characteristics Respiratory Depth Respiratory Pattern Blood Pressure 131/78 Blood Pressure Mean 86 Blood Pressure Position Pulse Oximetry 93 94 Oxygen Delivery Method Oxygen Flow Rate Sepsis Recent Fever Within 48 Hours Sepsis New/Unexplained Change in Mental Status Sepsis Action Taken by Nursing 09/13/24 09:45 09/13/24 10:00 09/13/24 10:00 Temperature Temperature Source Pulse Rate 67 Pulse Rate from SpO2 Sensor 66 Pulse Rhythm Pulse Strength Respiratory Rate 19 Respiratory Effort / Characteristics Respiratory Depth Respiratory Pattern Blood Pressure 123/78 123/78 Blood Pressure Mean 105 105 Blood Pressure Position Pulse Oximetry 93 Oxygen Delivery Method Oxygen Flow Rate Sepsis Recent Fever Within 48 Hours Sepsis New/Unexplained Change in Mental Status Sepsis Action Taken by Nursing 09/13/24 10:03 Temperature Temperature Source Pulse Rate 67 Pulse Rate from SpO2 Sensor 58 L Pulse Rhythm Pulse Strength Respiratory Rate 16 Respiratory Effort / Characteristics Respiratory Depth Respiratory Pattern Blood Pressure Blood Pressure Mean Blood Pressure Position Pulse Oximetry 94 Oxygen Delivery Method Oxygen Flow Rate Sepsis Recent Fever Within 48 Hours Sepsis New/Unexplained Change in Mental Status Sepsis Action Taken by Nursing Laboratory Data 09/13/24 08:40 09/13/24 08:40 Lab Results 09/13/24 Range/Units 08:40 WBC 9.11 (4.8-10.8) K/ul RBC 5.30 (4.70-6.10) M/uL Hgb 14.9 (14.0-18.0) g/dl Hct 45.2 (42.0-52.0) % MCV 85.3 (80.0-100.0) fL MCH 28.1 (25.0-34.0) pg MCHC 33.0 (32.0-36.0) g/dL RDW Std Deviation 40.4 (36.4-46.3) fL RDW Coeff of Priscilla 13.0 (11.5-14.5) % Plt Count 195 (130-400) K/uL MPV 11.0 (9.4-12.4) fL Immature Gran % (Auto) 0.4 % Neut % (Auto) 61.9 % Lymph % (Auto) 26.7 % Webb % (Auto) 9.1 % Eos % (Auto) 1.5 % Baso % (Auto) 0.4 % Neut # (Auto) 5.63 (1.40-6.50) K/uL Lymph # (Auto) 2.43 (1.20-3.40) K/uL Webb # (Auto) 0.83 H (0.11-0.59) K/uL Eos # (Auto) 0.14 (0.00-0.50) K/uL Baso # (Auto) 0.04 (0.00-0.20) K/uL Immature Gran # (Auto) 0.04 (0.01-0.20) K/uL Sodium 141 (136-145) mmol/L Potassium 4.3 (3.5-5.1) mmol/L Chloride 108 H (98-107) mmol/L Carbon Dioxide 26 (21-32) mmol/L Anion Gap 7 (3-11) BUN 14 (6-23) mg/dl Creatinine 0.68 (0.6-1.4) mg/dl Est Cr Clr Drug Dosing 158.0 ml/min eGFR 102.52 BUN/Creatinine Ratio 20.6 H (10-20) Glucose 114 H (70-99(Fasting)) mg/dl Estimat Average Glucose 128 mg/dl Hemoglobin A1c 6.1 H (4.5-5.6) % Calcium 9.9 (8.6-10.3) mg/dl Total Bilirubin 0.7 (0.2-1.0) mg/dl AST 13 (13-39) U/L ALT 15 (7-52) U/L Alkaline Phosphatase 88 (34-104) U/L Troponin I High Sens 9.2 (0-20) pg/ml Total Protein 7.5 (6.0-8.3) gm/dl Albumin 4.3 (3.4-5.0) gm/dl Globulin 3.2 (2.5-4.0) gm/dl Albumin/Globulin Ratio 1.3 (0.9-2) Lipase 21 (11-82) U/L Administered Medications Nitroglycerin (Nitroglycerin Sl 0.4 Mg/Tab Tab) 0.4 mg SL Q5M PRN PRN Reason: Chest Pain Stop: 10/13/24 08:34 Last Admin: 09/13/24 09:05 Dose: 0.4 mg Documented By: [facility] Discontinued Medications Aspirin (Aspirin Chew 324 Mg) 324 mg PO NOW STA Stop: 09/13/24 08:36 Last Admin: 09/13/24 08:39 Dose: 324 mg Documented By: [facility] Imaging Data Radiologist's Impression: Chest X-Ray 09/13/24 08:35 XR chest 1V portable CLINICAL HISTORY: Chest pain, nonspecific COMPARISON STUDY: Chest radiograph November 29, 2023. Chest CT November 30, 2023. FINDINGS: Lung volumes are normal. Lungs are clear. There is no pneumothorax or pleural effusion. Cardiomegaly is unchanged. Mediastinal contours are normal. There is no evidence for pulmonary edema. IMPRESSION: No acute cardiopulmonary findings. Stable cardiomegaly. ACT 112: Negative or not required by law. Electronically signed by: Carlo Keenan M.D. 09/13/2024 9:13 AM Discharge Plan Visit Data Chief Complaint: Chest Pain Stated Complaint: MINOR CHEST PAIN ED Provider: Juan Gracia Discharge Problem: Chest pain, High serum chloride Patient Disposition: Admitted As Inpatient Discharge Instructions Interventions: ED Discharge Assessment Last Done: 09/13/24 13:08 Discharge Problem: Chest pain Qualifiers: Chest pain type: unspecified Qualified Code(s): R07.9 - Chest pain, unspecified
[2024-09-13] MEDS: ASPIRIN CHEW 324 MG PO STA (08:39)
[2024-09-13 09:05] LABS: Basophils # (auto) 0.04 K/uL (0.00-0.20); Basophils % (auto) 0.4 %; Eosinophils # (auto) 0.14 K/uL (0.00-0.50); Eosinophils % (auto) 1.5 %; Hematocrit (blood only) 45.2 % (42.0-52.0); Hemoglobin 14.9 g/dl (14.0-18.0); Immature Granulocytes # (auto) 0.04 K/uL (0.01-0.20); Immature Granulocytes % (auto) 0.4 %; Lymphocytes # (auto) 2.43 K/uL (1.20-3.40); Lymphocytes % (auto) 26.7 %; Mean Corpuscular Hemoglobin 28.1 pg (25.0-34.0); Mean Corpuscular Volume 85.3 fL (80.0-100.0); Monocytes # (auto) 0.83 K/uL (0.11-0.59); Monocytes % (auto) 9.1 %; Neutrophils # (auto) 5.63 K/uL (1.40-6.50); Neutrophils % (auto) 61.9 %; Platelet Count 195 K/uL (130-400); RDW Standard Deviation 40.4 fL (36.4-46.3); White Blood Count 9.11 K/ul (4.8-10.8)
[2024-09-13] MEDS: NITROGLYCERIN SL 0.4 MG/TAB TAB SL PRN (09:05)
--- NOTE | 2024-09-13 09:16 | XRay Report ---
XR chest 1V portable CLINICAL HISTORY: Chest pain, nonspecific COMPARISON STUDY: Chest radiograph November 29, 2023. Chest CT November 30, 2023. FINDINGS: Lung volumes are normal. Lungs are clear. There is no pneumothorax or pleural effusion. Car diomegaly is unchanged. Mediastinal contours are normal. There is no evidence for pulmonary edema. IMPRESSION: No acute cardiopulmonary findings. Stable cardiomegaly. ACT 112: Negative or not required by law. Electronically signed by: Carlo Keenan M.D. 09/13/2024 9:13 AM
[2024-09-13 09:22] LABS: Albumin Globulin Ratio 1.3 (0.9-2); Albumin Level 4.3 gm/dl (3.4-5.0); BUN Creatinine Ratio 20.6 (10-20); Bilirubin,Total 0.7 mg/dl (0.2-1.0); Calcium 9.9 mg/dl (8.6-10.3); Globulin 3.2 gm/dl (2.5-4.0); Potassium 4.3 mmol/L (3.5-5.1); Total Protein 7.5 gm/dl (6.0-8.3)
[2024-09-13 09:29] LABS: Troponin I High Sensitivity 9.2 pg/ml (0-20)
--- NOTE | 2024-09-13 12:54 | History & Physical Report ---
Date of Service September 13, 2024 Assessment & Plan (1) Exertional chest pain: Plan: Patient has a history of coronary artery disease and had stents placed 10 years ago He had in-stent stenosis in October of this year requiring further stents He presents with exertional chest pain that reminds him of his October episode, radiating to jaw and left arm. Relieved with rest EKG negative Troponins negative I will trend his troponins Admit him to PCU Consult cardiology N.p.o. postmidnight for potential procedures tomorrow Ordered echocardiogram Continue aspirin, Plavix. Patient is willing to start 40 mg of Lipitor (see hyperlipidemia below) Continue Coreg (2) Type 2 diabetes mellitus: Plan: Will hold his home medications Patient is unwilling to take insulin even on sliding scale during the hospital stay. Sliding scale insulin not ordered as the patient refused Carb consistent diet Check A1c (3) Hyperlipidemia: Plan: Patient has had issues with statin induced myopathy He was on Lipitor 80 mg since October but 1-1/2 months ago, he started having leg cramps thus he reduced his dose of Lipitor to 40 mg Despite reduction in dose, his leg cramps did not improve and thus he completely discontinued Lipitor 10 days ago Currently his leg cramps have improved significantly since he discontinued Lipitor He is willing to start 40 mg of Lipitor He has tried rosuvastatin in the past which caused leg cramps as well (4) PEDRO (obstructive sleep apnea): Plan: Ordered CPAP (5) History of coronary artery disease: Plan: Please see problem #1 (6) BPH (benign prostatic hyperplasia): Plan: Continue Flomax Plan Full code. DVT prophylaxis: Lovenox History of Present Illness Chief Complaint: Chest pain Primary Care Provider: ESSENCE Staley This is a 64-year-old male with coronary artery disease status post stents 10 years ago, with in-stent stenosis in October 2023 when he had more stents placed, kzu-lxuzgto-lwengirhy diabetes mellitus type 2, hyperlipidemia, hypertension who presented with exertional chest pain. 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 Rest would make the pain go away. The pain was only 2/10 in intensity. He had pain on exertion but not every time he exerted himself. The pain was associated with left arm and jaw pain. This pain reminded him of what he experienced in October of this year when he had in-stent stenosis requiring stents. This has been going on for the last 2 days. Today he walked to the bathroom and he noticed the pain and thus decided to drive himself to the emergency room. He denies any shortness of breath or dizziness. Not sweating. The pain resolved after he got aspirin and nitro in the emergency room. Currently he is pain-free. He stated that since October he has tried rosuvastatin but had to stop because of leg cramps. He was then put on 80 mg of atorvastatin which she was taking. 1-1/2-month ago, he started having the leg cramps again that he tried going down to the 40 mg of atorvastatin. His muscle cramps did not go away and thus he totally took himself off of atorvastatin 10 days ago. He has not informed his PCP or refrigeration brazer/solderer yet about the statin discontinuation. Since he took himself off of atorvastatin, his leg cramps have diminished significantly. He is willing to go back to starting 40 mg of atorvastatin today. Past medical history 1. Coronary artery disease status post stents 10 years ago, status post in- stent stenosis in October requiring more stents 2. Benign essential hypertension 3. Gyf-postsiz-wjffbsjqg diabetes mellitus type 2 4. Obstructive sleep apnea. Usually compliant to CPAP but over the past 6 months has been relatively noncompliant 5. BPH. On Flomax 6. Hyperlipidemia. Having issues with statin induced myopathy. Stopped taking statin 10 days ago's 7. Morbid obesity with a BMI of 39 Allergies Allergy/AdvReac Type Severity Reaction Status Date / Time No Known Allergies Allergy Unverified 11/29/23 19:03 Home Medications Medication Instructions Recorded Confirmed Type aspirin 324 mg PO UD 11/29/23 09/13/24 History atorvastatin 20 mg tablet 80 mg PO HS 11/29/23 09/13/24 History carvedilol 6.25 mg tablet 6.25 mg PO BID 11/29/23 09/13/24 History cholecalciferol (vitamin D3) 25 2,000 mcg PO DAILY 11/29/23 09/13/24 History mcg (1,000 unit) tablet (Vitamin D3) clopidogrel 75 mg tablet 75 mg PO QAM 11/29/23 09/13/24 History coenzyme Q10 100 mg capsule 100 mg PO DAILY 11/29/23 09/13/24 History (CoQ-10) dapagliflozin propanediol 10 mg 10 mg PO QAM 11/29/23 09/13/24 History tablet lisinopril 10 mg tablet 10 mg PO QAM 11/29/23 09/13/24 History kgerbmjwxspd-ldfqlxbc-wnwpmy 1 tab PO DAILY 11/29/23 09/13/24 History tablet (Multivitamin 50 Plus tablet) omega-3 fatty acids 1,000 mg 1,000 mg PO DAILY 11/29/23 09/13/24 History capsule tamsulosin 0.4 mg capsule 0.4 mg PO QPM 11/29/23 09/13/24 History turmeric 400 mg capsule 400 mg PO DAILY 11/29/23 09/13/24 History isosorbide mononitrate 30 mg 30 mg PO QAM #30 tabs 11/30/23 09/13/24 Rx tablet,extended release 24 hr nitroglycerin 0.3 mg sublingual 0.3 mg sublingual Q5M PRN chest 11/30/23 09/13/24 Rx tablet pain #30 tabs amlodipine 5 mg tablet 5 mg PO DAILY 09/13/24 09/13/24 History betamethasone dipropionate 0.05 % 1 applic topical DIRECTED 09/13/24 09/13/24 History topical cream fexofenadine 180 mg tablet 180 mg PO DAILY 09/13/24 09/13/24 History magnesium 200 mg tablet 200 mg PO DAILY 09/13/24 09/13/24 History tirzepatide 7.5 mg/0.5 mL 5 mg subcut WK 09/13/24 09/13/24 History subcutaneous pen injector (Mounjaro) Past Med/Surg History Problem List (Updated 09/13/24 @ 12:59 by Jennifer De Leon MD) BPH (benign prostatic hyperplasia) Hyperlipidemia Exertional chest pain PEDRO (obstructive sleep apnea) Type 2 diabetes mellitus S/P coronary artery stent placement (Acute) History of coronary artery disease (Acute) Social History Smoking Status: Current some day smoker Tobacco Type: Cigars Second Hand Exposure: No; Do You Dip or Chew Tobacco: No; Hx Alcohol Use: No Hx Substance Use: Yes Last Used Substance: Days (ago) Last Used Substance Other:: x1 week ago Preferred Language: Kazakh Communication Ability: Effective Therapeutic Recreation Director Required: No Beliefs That Will Affect Care: None Current Living Situation: Spouse Feels Safe at Home: Yes Assistive Devices: CPAP Review of Systems Review of Systems: All systems reviewed & are unremarkable except as noted in Subjective Physical Exam Physical Exam: General: Awake, conversant Heart: S1, S2/regular rate and rhythm, no murmur rubs or gallops Lungs: Clear to auscultation bilaterally. Normal effort Abdomen: Soft/nontender/nondistended. No hepatosplenomegaly Extremities: No clubbing/cyanosis. No edema Behavior: Appropriate, cooperative Results & Data Results & Data Vital Signs (Past 12 Hours) Vital Signs Temp Pulse Resp BP Pulse Ox O2 Del Method O2 Flow Rate 09/13/24 11:00 119/67 09/13/24 11:00 61 20 95 09/13/24 10:30 63 15 96 09/13/24 10:30 113/77 09/13/24 10:03 67 16 94 09/13/24 10:00 123/78 09/13/24 10:00 123/78 09/13/24 09:45 67 19 93 09/13/24 09:42 61 18 94 09/13/24 09:00 131/78 09/13/24 09:00 68 17 93 09/13/24 09:00 131/78 09/13/24 09:00 64 09/13/24 08:57 96 Room Air 09/13/24 08:57 Room Air 96 09/13/24 08:46 36.6 C 59 L 18 153/90 H 96 Room Air 09/13/24 08:42 72 21 96 Laboratory Results Abnormal lab results 09/13/24 Range/Units 08:40 [place] # (Auto) 0.83 H (0.11-0.59) K/uL Chloride 108 H (98-107) mmol/L BUN/Creatinine Ratio 20.6 H (10-20) Glucose 114 H (70-99(Fasting)) mg/dl Diagnostic Findings Chest X-Ray 09/13/24 08:35 XR chest 1V portable CLINICAL HISTORY: Chest pain, nonspecific COMPARISON STUDY: Chest radiograph November 29, 2023. Chest CT November 30, 2023. FINDINGS: Lung volumes are normal. Lungs are clear. There is no pneumothorax or pleural effusion. Cardiomegaly is unchanged. Mediastinal contours are normal. There is no evidence for pulmonary edema. IMPRESSION: No acute cardiopulmonary findings. Stable cardiomegaly. ACT 112: Negative or not required by law. Electronically signed by: Carlo Keenan M.D. 09/13/2024 9:13 AM PG Care Time/CCT Total # of Minutes Spent Total Time Spent with Patient: Total time spent is greater than 50% in coordination of care (as documented) at patient's floor/unit and/or counseling patient: Coding Level of Care Code 12523 INT INP/OBS CARE 2/55MIN Diagnoses Exertional chest pain R07.9 Type 2 diabetes mellitus E11.9 Hyperlipidemia E78.5 PEDRO (obstructive sleep apnea) G47.33 History of coronary artery disease Z86.79 BPH (benign prostatic hyperplasia) N40.0
[2024-09-13] MEDS ORDERED: ALUMINUM/MAGNESIUM SUSP 30 ML UDC PO PRN (13:43)
[2024-09-13] MEDS ORDERED: MAGNESIUM HYDROXIDE SUSP 30 ML UDC PO PRN (13:43)
[2024-09-13] MEDS ORDERED: POLYETHYLENE (MIRALAX) 17 GM PACK PO PRN (13:43)
[2024-09-13] MEDS ORDERED: ONDANSETRON INJ 2 MG/ML 2 ML VIAL IV PRN (13:43)
[2024-09-13] MEDS ORDERED: ACETAMINOPHEN 325 MG TAB PO PRN (13:43)
[2024-09-13 14:13] LABS: Estimated Average Glucose 128 mg/dl; Hemoglobin A1C 6.1 % (4.5-5.6)
--- NOTE | 2024-09-13 15:05 | Electrocardiogram Report ---
Test Reason : Blood Pressure : */* mmHG Vent. Rate : 63 BPM Atrial Rate : 63 BPM P-R Int : 180 ms QRS Dur : 86 ms QT Int : 400 ms P-R-T Axes : 34 -31 29 degrees QTcB Int : 409 ms Normal sinus rhythm Left axis deviation Minimal voltage criteria for LVH, may be normal variant Poor R wave progression, consider anterior NE vs. lead placement vs. LVH Abnormal ECG When compared with ECG of 29-Nov-2023 17:00, Premature ventricular complexes are no longer Present Confirmed by Brody Nuñez ([id number]) on 09/13/2024 3:05:29 PM Referred By: Confirmed By: Brody Nuñez
--- NOTE | 2024-09-13 16:37 | XCELERA ---
[id number]
--- NOTE | 2024-09-13 16:53 | Cardiology Consultation ---
Date of Consultation September 13, 2024 Assessment & Plan (1) Exertional chest pain: (2) History of coronary artery disease: (3) Hyperlipidemia: Plan 1. Exertional angina: His symptoms are concerning for exertional angina. They started recently and are reminiscent of prior symptoms. They have a concerning character and are brought about with exertion, relieved with rest. No evidence of ischemia or infarct based on echocardiography and biomarkers. Episodes himself have been fairly brief in duration. We discussed options for evaluation. This would include noninvasive evaluation with provocative testing such as exercise echocardiography. Given his risk factors and history it seems that coronary angiography would also be a reasonable option as his pretest probability for coronary disease is quite high. He is more interested in definitive diagnosis and requests coronary angiography. We discussed the risks, benefits and alternatives as noted. Will plan on proceeding tomorrow. Continue isosorbide, amlodipine and carvedilol. 2. Coronary artery disease: Known to have percutaneous intervention to the LAD and RCA. Possibly 1 additional vessel. Initially performed in the setting of an acute myocardial infarction over 10 years ago. More recently with recurrent symptoms. By report he had in stent restenosis. Will continue aspirin and Plavix. 3. Hyperlipidemia: His lipids are well-controlled at the time of his last hospitalization. Unfortunately, he stopped statin therapy due to perceived side effects. We can discuss alternatives such as injectable therapy. 4. Aortic dilation: Noted on his echocardiogram, but a CTA performed in November of this year did not demonstrate any increased caliber of the aorta. History of Present Illness Reason for Consultation: Exertional chest pain Requesting Physician: Haley Attending Physician: Jennifer De Leon MD History of Present Illness The patient is a 64-year-old gentleman with a history of coronary artery disease having suffered a myocardial infarction quite remotely and undergone recent percutaneous intervention and early 2023. He was admitted to our facility in November 2023 with recurrent chest discomfort. At that time, his symptoms were atypical and extended in duration. There is no objective evidence of ischemia and he was discharged on a more intensive antianginal regimen. He appears to have done quite well since that time. He engages in fairly routine physical activity. This generally involves doing projects around the house, ascending stairs and carrying heavy items. He was not having symptoms associated with that activity until 3 days ago. 2 days ago he began to experience symptoms of left arm left jaw and chest discomfort with extremes of activity. The patient would rest and the symptoms will resolve over 5 to 10 minutes. He feels these are fairly reproducible with certain types of exertion at this time. No symptoms at rest. He denied other symptoms such as limiting dyspnea, orthopnea, palpitations, dizziness or syncope. No lower extremity edema. He appears to have been compliant with his medical therapy. He feels that the symptoms are similar to those experienced prior to his last percutaneous intervention. Allergies Allergy/AdvReac Type Severity Reaction Status Date / Time No Known Allergies Allergy Unverified 11/29/23 19:03 Home Medications Medication Instructions Recorded Confirmed Type aspirin 324 mg PO UD 11/29/23 09/13/24 History atorvastatin 20 mg tablet 80 mg PO HS 11/29/23 09/13/24 History carvedilol 6.25 mg tablet 6.25 mg PO BID 11/29/23 09/13/24 History cholecalciferol (vitamin D3) 25 2,000 mcg PO DAILY 11/29/23 09/13/24 History mcg (1,000 unit) tablet (Vitamin D3) clopidogrel 75 mg tablet 75 mg PO QAM 11/29/23 09/13/24 History coenzyme Q10 100 mg capsule 100 mg PO DAILY 11/29/23 09/13/24 History (CoQ-10) dapagliflozin propanediol 10 mg 10 mg PO QAM 11/29/23 09/13/24 History tablet lisinopril 10 mg tablet 10 mg PO QAM 11/29/23 09/13/24 History uqffigkladxn-glfbhczu-rhldwx 1 tab PO DAILY 11/29/23 09/13/24 History tablet (Multivitamin 50 Plus tablet) omega-3 fatty acids 1,000 mg 1,000 mg PO DAILY 11/29/23 09/13/24 History capsule tamsulosin 0.4 mg capsule 0.4 mg PO QPM 11/29/23 09/13/24 History turmeric 400 mg capsule 400 mg PO DAILY 11/29/23 09/13/24 History isosorbide mononitrate 30 mg 30 mg PO QAM #30 tabs 11/30/23 09/13/24 Rx tablet,extended release 24 hr nitroglycerin 0.3 mg sublingual 0.3 mg sublingual Q5M PRN chest 11/30/23 09/13/24 Rx tablet pain #30 tabs amlodipine 5 mg tablet 5 mg PO DAILY 09/13/24 09/13/24 History betamethasone dipropionate 0.05 % 1 applic topical DIRECTED 09/13/24 09/13/24 History topical cream fexofenadine 180 mg tablet 180 mg PO DAILY 09/13/24 09/13/24 History magnesium 200 mg tablet 200 mg PO DAILY 09/13/24 09/13/24 History tirzepatide 7.5 mg/0.5 mL 5 mg subcut WK 09/13/24 09/13/24 History subcutaneous pen injector (Mounjaro) Patient History Social History Smoking Status: Light tobacco smoker Tobacco Type: Cigars Second Hand Exposure: No; Do You Dip or Chew Tobacco: No; Hx Alcohol Use: No Hx Substance Use: No Preferred Language: Sinhala Communication Ability: Effective Water Supply Technician Required: No Beliefs That Will Affect Care: None Current Living Situation: Spouse Feels Safe at Home: Yes Assistive Devices: Hearing Aid - Bilateral Review of Systems Review of Systems: Per HPI. Some cramping in his calves bilaterally. He experiences on rosuvastatin and switch to atorvastatin. He recently discontinued atorvastatin as well with resolution of his cramping. Physical Exam Physical Exam: The patient is alert and oriented. Mood and affect appeared normal. He answered all questions appropriately. HEENT: Pupils are equal and reactive to light and accommodation. Extraocular movements are intact. The sclerae are anicteric. Neuro: Cranial nerves intact Lungs: Clear to auscultation bilaterally. He has good air movement without use of accessory muscles. No rales wheezes or rhonchi. Cardiac: Heart demonstrates a regular rate and rhythm. Normal S1 and S2. No murmurs on examination. Pulses: The patient has palpable radial pulses bilaterally that are equal in intensity Extremities: There was no evidence of hypoperfusion. There is no cyanosis or clubbing. There is no edema. Skin: I did not appreciate any rashes on examination today. Results & Data Vital Signs (Past 12 Hours) Vital Signs Temp Pulse Pulse Resp BP BP Pulse Ox 09/13/24 16:23 36.4 C L 58 L 18 132/79 95 09/13/24 15:33 36.5 C 63 18 137/81 95 09/13/24 13:03 62 15 96 09/13/24 13:00 130/86 09/13/24 12:57 63 14 94 09/13/24 12:36 66 16 95 09/13/24 12:30 136/89 09/13/24 12:27 60 18 95 09/13/24 12:12 63 20 95 09/13/24 12:01 140/94 09/13/24 11:51 64 19 95 09/13/24 11:42 72 14 96 09/13/24 11:30 116/73 09/13/24 11:27 55 L 12 94 09/13/24 11:00 119/67 09/13/24 11:00 61 20 95 09/13/24 10:30 63 15 96 09/13/24 10:30 113/77 09/13/24 10:03 67 16 94 09/13/24 10:00 123/78 09/13/24 10:00 123/78 09/13/24 09:45 67 19 93 09/13/24 09:42 61 18 94 09/13/24 09:00 131/78 09/13/24 09:00 68 17 93 09/13/24 09:00 131/78 09/13/24 09:00 64 09/13/24 08:57 96 09/13/24 08:57 09/13/24 08:46 36.6 C 59 L 18 153/90 H 96 09/13/24 08:42 72 21 96 O2 Del Method O2 Flow Rate 09/13/24 16:23 Room Air 09/13/24 15:33 Room Air 09/13/24 13:03 09/13/24 13:00 09/13/24 12:57 09/13/24 12:36 09/13/24 12:30 09/13/24 12:27 09/13/24 12:12 09/13/24 12:01 09/13/24 11:51 09/13/24 11:42 09/13/24 11:30 09/13/24 11:27 09/13/24 11:00 09/13/24 11:00 09/13/24 10:30 09/13/24 10:30 09/13/24 10:03 09/13/24 10:00 09/13/24 10:00 09/13/24 09:45 09/13/24 09:42 09/13/24 09:00 09/13/24 09:00 09/13/24 09:00 09/13/24 09:00 09/13/24 08:57 Room Air 09/13/24 08:57 Room Air 96 09/13/24 08:46 Room Air 09/13/24 08:42 Laboratory Results Abnormal Lab Results 09/13/24 08:40 WBC 9.11 RBC 5.30 Hgb 14.9 Hct 45.2 MCV 85.3 MCH 28.1 MCHC 33.0 RDW Std Deviation 40.4 RDW Coeff of Priscilla 13.0 Plt Count 195 MPV 11.0 Immature Gran % (Auto) 0.4 Neut % (Auto) 61.9 Lymph % (Auto) 26.7 [place] % (Auto) 9.1 Eos % (Auto) 1.5 Baso % (Auto) 0.4 Neut # (Auto) 5.63 Lymph # (Auto) 2.43 [place] # (Auto) 0.83 H Eos # (Auto) 0.14 Baso # (Auto) 0.04 Immature Gran # (Auto) 0.04 Sodium 141 Potassium 4.3 Chloride 108 H Carbon Dioxide 26 Anion Gap 7 BUN 14 Creatinine 0.68 Est Cr Clr Drug Dosing 158.0 eGFR 102.52 BUN/Creatinine Ratio 20.6 H Glucose 114 H Estimat Average Glucose 128 Hemoglobin A1c 6.1 H Calcium 9.9 Total Bilirubin 0.7 AST 13 ALT 15 Alkaline Phosphatase 88 Troponin I High Sens 9.2 Total Protein 7.5 Albumin 4.3 Globulin 3.2 Albumin/Globulin Ratio 1.3 Lipase 21 Diagnostic Findings Chest x-ray obtained the time mentioned apnea acute cardiopulmonary process. Echocardiogram 09/10/2024: Preserved LV systolic function and wall motion. Ejection fraction 50 to 55%. No significant valvular heart disease. Left atrial enlargement and ascending aortic enlargement measured 4.1 cm. ECG Additional Comments: EKG demonstrated normal sinus rhythm with poor R wave progression in precordial leads. Voltage criteria for left ventricular hypertrophy. PG Care Time/CCT Total # of Minutes Spent Total Time Spent with Patient: Total time spent is greater than 50% in coordination of care (as documented) at patient's floor/unit and/or counseling patient: Coding Level of Care Code 35364 INT INP/OBS CARE 3/75MIN Diagnoses Exertional chest pain R07.9 History of coronary artery disease Z86.79 Hyperlipidemia E78.5
[2024-09-13] MEDS: INFLUENZA VACC TS2024-25(65y+)/PF (IIV3) 0.5mL Syr IM ONE (17:27)
[2024-09-13] MEDS: TAMSULOSIN HCL 0.4 MG CAP PO SCH (20:04)
[2024-09-13] MEDS: ATORVASTATIN 40 MG TAB PO SCH (20:04)
[2024-09-13] MEDS: carvediloL 6.25 MG TAB PO SCH (20:05)
[2024-09-14 06:53] LABS: Basophils # (auto) 0.03 K/uL (0.00-0.20); Basophils % (auto) 0.3 %; Eosinophils % (auto) 2.2 %; Hematocrit (blood only) 44.8 % (42.0-52.0); Hemoglobin 14.5 g/dl (14.0-18.0); Immature Granulocytes # (auto) 0.03 K/uL (0.01-0.20); Immature Granulocytes % (auto) 0.3 %; Lymphocytes # (auto) 2.38 K/uL (1.20-3.40); Lymphocytes % (auto) 26.1 %; Mean Corpuscular Hemoglobin 27.9 pg (25.0-34.0); Mean Corpuscular Hgb Conc 32.4 g/dL (32.0-36.0); Mean Corpuscular Volume 86.2 fL (80.0-100.0); Mean Platelet Volume 10.9 fL (9.4-12.4); Monocytes # (auto) 0.91 K/uL (0.11-0.59); Neutrophils # (auto) 5.58 K/uL (1.40-6.50); Neutrophils % (auto) 61.1 %; Platelet Count 193 K/uL (130-400); RDW Coefficient of Variation 13.2 % (11.5-14.5); RDW Standard Deviation 41.2 fL (36.4-46.3); White Blood Count 9.13 K/ul (4.8-10.8)
[2024-09-14 07:11] LABS: BUN Creatinine Ratio 18.3 (10-20); Calcium 9.4 mg/dl (8.6-10.3); Chol HDL Ratio 4.5 (0-5); Creatinine Clr Calc Pharmacy 150.8 ml/min; Potassium 4.2 mmol/L (3.5-5.1)
[2024-09-14] MEDS: ASPIRIN 325 MG ECTAB PO SCH (08:49)
[2024-09-14] MEDS: amLODIPine BESYLATE 5 MG TAB PO SCH (08:50)
[2024-09-14] MEDS: MAGNESIUM OXIDE 400 MG TAB PO SCH (08:50)
[2024-09-14] MEDS: lisinopril 10 MG TAB PO SCH (08:50)
[2024-09-14] MEDS: ISOSORBIDE MONO EXTENDED REL 30 MG TABCR PO SCH (08:50)
[2024-09-14] MEDS: CLOPIDOGREL BISULFATE 75 MG TAB PO SCH (08:50)
[2024-09-14] MEDS: ENOXAPARIN INJ 40 MG/0.4 ML SYR SQ SCH (08:51)
--- NOTE | 2024-09-14 11:36 | Pre Anesthesia Assessment ---
Date of Service September 14, 2024 Pre Sedation Assessment Vital Signs Temp Pulse Pulse Resp BP BP Pulse Ox 09/14/24 11:02 36.8 C 69 19 125/71 95 09/14/24 08:33 36.6 C 63 19 145/84 H 95 09/14/24 07:25 60 09/14/24 03:31 36.5 C 55 L 18 145/88 H 97 09/13/24 23:31 36.4 C L 55 L 16 146/61 H 94 09/13/24 21:59 56 L 09/13/24 20:00 09/13/24 19:15 36.6 C 58 L 20 147/91 H 95 09/13/24 16:23 36.4 C L 58 L 18 132/79 95 09/13/24 15:33 36.5 C 63 18 137/81 95 09/13/24 13:03 62 15 96 09/13/24 13:00 130/86 09/13/24 12:57 63 14 94 09/13/24 12:36 66 16 95 09/13/24 12:30 136/89 09/13/24 12:27 60 18 95 09/13/24 12:12 63 20 95 09/13/24 12:01 140/94 09/13/24 11:51 64 19 95 09/13/24 11:42 72 14 96 O2 Del Method 09/14/24 11:02 Room Air 09/14/24 08:33 Room Air 09/14/24 07:25 09/14/24 03:31 Room Air 09/13/24 23:31 Room Air 09/13/24 21:59 09/13/24 20:00 Room Air 09/13/24 19:15 Room Air 09/13/24 16:23 Room Air 09/13/24 15:33 Room Air 09/13/24 13:03 09/13/24 13:00 09/13/24 12:57 09/13/24 12:36 09/13/24 12:30 09/13/24 12:27 09/13/24 12:12 09/13/24 12:01 09/13/24 11:51 09/13/24 11:42 Cardiovascular + regular rate Respiratory + respiratory effort normal Pre-Sedation Airway Assessment Smoking Status: Light tobacco smoker Hx Sleep Apnea: Yes Hx Difficult Intubation: No Short, Thick Neck: No Thyromental Distance: > or= 3.5 Finger Breadths Oral Cavity: + WNL Mallampati Class: III ASA: ASA3 Procedure Planning Contraindications for Sedation: none Current Medications Reviewed: Yes Notes The planned sedation has been discussed with the patient. Informed Consent was obtained. I have identified the patient, determined the appropriateness of sedation and have assessed the patient immediately prior to the procedure. All medicine(s) and interventions are by my order.
[2024-09-14] MEDS: OPTIRAY 350 ONE ×2 (12:14→12:31)
[2024-09-14] MEDS: NITROGLYCERIN/D5W 100MCG/ML 20ML SYR ONE (12:14)
[2024-09-14] MEDS: niCARdipine 2,000 MCG/20 ML SYR ONE (12:14)
[2024-09-14] MEDS: fentaNYL citrate PF 100 MCG/2 ML VIAL ONE (12:31)
[2024-09-14] MEDS: HEPARIN (PORCINE) 1000 UNIT/ML 10 ML (CATH LAB USE ONLY) ONE (12:31)
[2024-09-14] MEDS: MIDAZOLAM HCL 1 MG/ML 2ML VIAL ONE (12:31)
--- NOTE | 2024-09-14 13:40 | Post Anesthesia Assessment ---
Date of Service September 14, 2024 Post Sedation Assessment Vital Signs Temp Pulse Pulse Resp BP Pulse Ox O2 Del Method 09/14/24 13:05 63 16 97/63 L 95 Room Air 09/14/24 12:50 65 16 109/73 95 Room Air 09/14/24 12:35 48 L 16 116/75 95 Room Air 09/14/24 11:31 62 15 145/87 H 96 Room Air 09/14/24 11:02 36.8 C 69 19 125/71 95 Room Air 09/14/24 08:33 36.6 C 63 19 145/84 H 95 Room Air 09/14/24 07:25 60 09/14/24 03:31 36.5 C 55 L 18 145/88 H 97 Room Air 09/13/24 23:31 36.4 C L 55 L 16 146/61 H 94 Room Air 09/13/24 21:59 56 L 09/13/24 20:00 Room Air 09/13/24 19:15 36.6 C 58 L 20 147/91 H 95 Room Air 09/13/24 16:23 36.4 C L 58 L 18 132/79 95 Room Air 09/13/24 15:33 36.5 C 63 18 137/81 95 Room Air Recovery Score Activity: Moves 4 extremities Respiration: Deep Breath/Cough Circulation: +/-20% PreAnes Value Consciousness: Fully Awake Oxygen Saturation: > 92% On Room Air Post Anesthesia Score: 10 Discharge Sedation Level of Care: Fast Track Phase II Post Sedation Plan On clinical assessment, the patient appears to have tolerated the sedation without complications. Patient is recovering as anticipated. Patient will continue to be monitored by nursing and may be discharged when sedation discharge criteria are met per below protocol. Upon Completions of procedure up to 15 minutes continue every 5 minute vital signs and the P.A.R. score; then discharge to a Phase I or Fast Track to Phase II per the following guidelines: * Discharge Patient to appropriate Phase II area if PAR is 8 or greater or return to pre- procedure baseline. The post - procedure orders will be as directed. * If PAR score is less than 8 or not return to pre-procedure baseline then patie nt will follow Phase I monitoring till PAR is reached for Phase II. The Phase I may be done in procedure room or may call to secure a Phase I area. * If naloxone or flumazenil are used for reversal, hold in Phase I for continued monitoring from when last reversal dose was given for a minimum of 60 minutes or longer pending the nurse and/or physician discretion of patient condition before discharge to Phase II. Please call the Sedation Physician to re-evaluate and complete post-note for discharge to Phase II area. Do NOT discharge from procedure sedation or Phase 1 until post- sedation ev aluation note is complete by procedure /sedation MD Sedation Discharge Instructions to be given to the patient at discharge to home.
--- NOTE | 2024-09-14 13:40 | Cardiac Catheterization ---
[facility] Data: Super[employer] Process Cardiac Status Clinical evaluation leading to the procedure Diagnostic Physicians Name: Brody Nuñez MD Closure Device Recommendations: Medical Therapy and/or Counseling Cardiac Cath Procedure Full Procedure Date September 14, 2024 Pre-Procedure Diagnosis Pre-Procedure Diagnosis: Angina AUC Score AUC Score: 7 Post-Procedure Diagnosis Post-Procedure Diagnosis: Moderate CAD Procedure(s) Performed Procedure(s) Performed: Coronary Angiography and Left Heart Cath Medical Practice Assistant Brody Nuñez MD Estimated Blood Loss Estimated Blood Loss: 7cc Medication(s) Medication(s): Fentanyl, Heparin, Lidocaine 1%, Nicardipine, Nitroglycerin and Versed Summary of Findings Procedure performed: Left heart catheterization, selective coronary angiography Staff supply requirements officer: Brody Nuñez MD Indication: The patient is a 64-year-old gentleman with a prior history of myocardial infarction and percutaneous intervention to the LAD and right coronary artery. He presented with symptoms of exertional chest discomfort and requested repeat angiography for evaluation. Procedure in detail: The patient was informed of the risks benefits and alternatives to the intended procedure, he understood such and wished to proceed. He was taken to the cardiac catheterization suite in a fasting state. Conscious sedation was administered per protocol and the patient was monitored electrocardiographically throughout today's procedure. The right wrist area was prepped and draped in usual sterile fashion. This area was anesthetized using subcutaneous administration of a lidocaine solution. The right radial artery was then accessed using Seldinger technique, and a arterial sheath was placed at this site over a guidewire. The sheath was used to facilitate passage of the cardiac catheter for coronary angiography and left heart catheterization. Coronary angiogram was then obtained in multiple orthogonal views prior to removal of the catheter. At the conclusion of the procedure the sheath was removed and hemostasis was achieved at the access site using manual pressure. The patient tolerated procedure well, there were no immediate complications. Equipment used: 5 [place] 4 Findings: Coronary angiography Left Main: Left main was normal in size and caliber and bifurcated normally into the left anterior descending and left circumflex arteries. No significant disease in this vessel Left anterior descending colon left anterior sending was a large transapical vessel. It had several stents in its proximal and midportion. There is a 40 to 50% stenosis prior to the first proximal stent. There was no evidence of in- stent restenosis. Left circumflex: Left circumflex was a nondominant vessel. It had some luminal irregularities but no discrete stenoses. Right coronary artery: Right coronary artery was normal in size and caliber. It produced a posterior descending artery and a branching posterolateral artery. There was disease in the proximal portion of the 2 limbs of the posterolateral branch. No in-stent restenosis in the proximal portion of the vessel. Impression: No evidence of in-stent restenosis Right dominant coronary system Obstructive disease involving the proximal portion of a branching PLB. Hemodynamics Rest Ao:: 86/59 mmHg Final Ao: 107/73 mmHg LV: n/a Recommendations Recommendations: Medical Therapy and/or Counseling Specimens Specimens: None Radiation Exposure (mGy) 1075 Contrast (mls) 40 Procedural Complication(s) None Disposition PCU I attest to the content of the Intraoperative Record and any orders documented therein. Any exceptions are noted below. [facility] Card Cath Procedure Codes Cardiac Catheterization Procedure 1: Cardiovascular Cath Procedures: 03999 Coronaries and LHC (+/-LV) Moderate Sedation Procedure 1: Sedation/Anesthesia: 10017 Mod Sedation by the same physician;Init15 Min Child Age 5 & Up Procedure 2: Sedation/Anesthesia: 68325 Mod Sedation by the same physician; Ea [id number] Minutes PG Care Time/CCT Total # of Minutes Spent Total Time Spent with Patient: Total time spent is greater than 50% in coordination of care (as documented) at patient's floor/unit and/or counseling patient:
[2024-09-14 13:59] VITALS: TEMP 98.1
[2024-09-14 14:38] VITALS: RESP 18
[2024-09-14 15:27] VITALS: O2SAT 94
--- NOTE | 2024-09-14 16:16 | Discharge Summary ---
Discharge Summary Date of Service September 14, 2024 Principal Dx & Hospital Course #1 = Principal Diagnosis (1) Exertional chest pain: Patient has a history of coronary artery disease and had stents placed 10 years ago He had in-stent stenosis in October of this year requiring further stents He presents with exertional chest pain that reminds him of his October episode, radiating to jaw and left arm. Relieved with rest EKG negative Appreciate input from cardio: Angiography did not reveal any critical stenoses. No in-stent restenosis. Symptoms likely related to some distal branch vessel disease involving the right coronary, PLB and a another PDA branch. These vessels are too small to accommodate any stent. Will intensify his medical therapy by doubling his isosorbide mononitrate. We have the option of increasing the amlodipine, carvedilol or adding Ranexa as well. (2) Type 2 diabetes mellitus: Will hold his home medications Patient is unwilling to take insulin even on sliding scale during the hospital stay. Sliding scale insulin not ordered as the patient refused Carb consistent diet (3) Hyperlipidemia: Patient has had issues with statin induced myopathy He was on Lipitor 80 mg since October but 1-1/2 months ago, he started having leg cramps thus he reduced his dose of Lipitor to 40 mg Despite reduction in dose, his leg cramps did not improve and thus he completely discontinued Lipitor 10 days ago Currently his leg cramps have improved significantly since he discontinued Lipitor He is willing to start 40 mg of Lipitor He has tried rosuvastatin in the past which caused leg cramps as well (4) PEDRO (obstructive sleep apnea): Ordered CPAP (5) History of coronary artery disease: Please see problem #1 (6) BPH (benign prostatic hyperplasia): Continue Flomax Admission HPI Per Admitting Provider This is a 64-year-old male with coronary artery disease status post stents 10 years ago, with in-stent stenosis in October 2023 when he had more stents placed, ynx-whopabl-bpciaxrfz diabetes mellitus type 2, hyperlipidemia, hyper tension who presented with exertional chest pain. 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 Rest would make the pain go away. The pain was only 2/10 in intensity. He had pain on exertion but not every time he exerted himself. The pain was associated with left arm and jaw pain. This pain reminded him of what he experienced in October of this year when he had in-stent stenosis requiring stents. This has been going on for the last 2 days. Today he walked to the bathroom and he noticed the pain and thus decided to drive himself to the emergency room. He denies any shortness of breath or dizziness. Not sweating. The pain resolved after he got aspirin and nitro in the emergency room. Currently he is pain-free. He stated that since October he has tried rosuvastatin but had to stop because of leg cramps. He was then put on 80 mg of atorvastatin which she was taking. 1-1/2-month ago, he started having the leg cramps again that he tried going down to the 40 mg of atorvastatin. His muscle cramps did not go away and thus he totally took himself off of atorvastatin 10 days ago. 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 Since he took himself off of atorvastatin, his leg cramps have diminished significantly. He is willing to go back to starting 40 mg of atorvastatin today. Past medical history 1. Coronary artery disease status post stents 10 years ago, status post in- stent stenosis in October requiring more stents 2. Benign essential hypertension 3. Xmc-tpaiuwi-agsnqwcoh diabetes mellitus type 2 4. Obstructive sleep apnea. Usually compliant to CPAP but over the past 6 months has been relatively noncompliant 5. BPH. On Flomax 6. Hyperlipidemia. Having issues with statin induced myopathy. Stopped taking statin 10 days ago's 7. Morbid obesity with a BMI of 39 Discharge Exam General: Awake, conversant Heart: S1, S2/regular rate and rhythm, no murmur rubs or gallops Lungs: Clear to auscultation bilaterally. Normal effort Abdomen: Soft/nontender/nondistended. No hepatosplenomegaly Extremities: No clubbing/cyanosis. No edema Behavior: Appropriate, cooperative Discharge Plan Discharge Items Patient Disposition: Home - Self-Care Reason For Visit: CHEST PAIN Discharge Diagnosis: chest pain Activity: Resume your previous activity Lifting: No more than 5 pounds Lifting Comment: No vigorous use of right hand or wrist for 7 days Non-emergency contact: Primary Care Provider Call non-emergency contact if: you have any medication questions Follow-up/Referrals: Alicia Zelaya CRNP [Primary Care Provider] - Diet: Carb Consistent or DM2 and Heart Healthy Addtl Attending Provider Instructions: Home Care: * Take your medications exactly as directed. Don't skip doses. * Remember that recovery after a heart attack takes time. Plan to rest for at lease 4-8 weeks while you recover. Then return to normal activity when your doctor says it's okay. * Ask your doctor about joining a heart rehabilitation program. * Tell your doctor if you are feeling depressed. Feelings of sadness are common after a heart attack, but it is important that you speak to someone if you are feeling overwhelmed by these feelings. * If you are having chest pain, call 911 for an ambulance. Do NOT drive yourself to the hospital. * Ask your family members to learn CPR. * Learn to take your own blood pressure and pulse. Keep a record of your results. Ask your doctor when you should seek emergency medical attention. He or she will tell you which blood pressure reading is dangerous. Lifestyle Changes: * Maintain a healthy weight. Get help to lose any extra pounds. * Cut back on salt. * Limit canned, dried, packaged, and fast foods. * Don't add salt to your food. * Season foods with herbs instead of salt when you cook. * Break the smoking habit. Enroll in a stop-smoking program to improve your chances of success. * Limit fatty foods. * Ask your doctor about having your lipid levels checked regularly. * Build up your activity according to your doctor's recommendation. * Ask your doctor when it's okay to resume sexual activity. * Tell your doctor about any erectile dysfunction (ED) medication you are taking. Some ED medications are not safe if you take certain heart medications. * Try to manage stress. Follow Up: It is important for you to keep your follow up appointments with your medical provider. Pending Studies at Discharge: No Stand-Alone Forms[facility] Sm[facility] Cessation Medications and DC Order Prescriptions: Continued fexofenadine 180 mg tablet 180 mg PO DAILY amlodipine 5 mg tablet 5 mg PO DAILY magnesium 200 mg tablet 200 mg PO DAILY Mounjaro 7.5 mg/0.5 mL pen injector 5 mg SUBCUT WK betamethasone dipropionate 0.05 % cream 1 applic TOPICAL DIRECTED Rx Instructions: bid prn carvedilol 6.25 mg tablet 6.25 mg PO BID clopidogrel 75 mg tablet 75 mg PO QAM tamsulosin 0.4 mg capsule 0.4 mg PO QPM lisinopril 10 mg tablet 10 mg PO QAM dapagliflozin propanediol 10 mg tablet 10 mg PO QAM Rx Instructions: not filled with current pharmacy omega-3 fatty acids 1,000 mg Capsule 1,000 mg PO DAILY Multivitamin 50 Plus Tablet 1 tab PO DAILY Rx Instructions: otc unable to verify coenzyme Q10 [CoQ-10] 100 mg Capsule 100 mg PO DAILY cholecalciferol (vitamin D3) [Vitamin D3] 25 mcg (1,000 unit) Tablet 2,000 mcg PO DAILY turmeric 400 mg Capsule 400 mg PO DAILY Rx Instructions: otc unable to verify nitroglycerin 0.3 mg tablet, sublingual 0.3 mg sublingual Q5M PRN (Reason: chest pain) Qty: 30 0RF Rx Instructions: no script on file w/pharmacy Changed isosorbide mononitrate 60 mg tablet extended release 24 hr 60 mg PO DAILY Qty: 30 0RF aspirin 324 mg 81 mg PO UD Qty: 0 0RF Rx Instructions: unable to verify No Action pravastatin 80 mg tablet 80 mg PO DAILY Qty: 90 3RF Discharge Orders: Discharge Order (Routine); Ordered 09/14/24 Ordered By: Terrance Rjaan/Other Patient Handouts: High Blood Sugar (Hyperglycemia), Hypoglycemia (Low Blood Sugar), Managing Type 2 Diabetes, ED Cardiac Cath Post Bleed Admission Data Admit Date/Time: 09/13/24 10:23 Attending Provider: Terrance Dominguez Admit Provider: Jennifer De Leon Primary Care Provider: Alicia Zelaya Other Providers: Brody Nuñez; Jennifer De Leon Other Interventions: Discharge Summary Assessment (RN) Last Done: 09/14/24 16:18 Hospital Stay Data Consultations 09/13/24 09:41 ED Decision to Admit Stat 09/13/24 12:35 Consult Cardiology Stat Procedures Performed Operation Date: 09/14/24 11:00 Actual Procedures p Cineradiography w/Routine Exam - Brody Nuñez MD s Cath, Left with Cors and Vent - Landen Frye MD, PhD Diagnostic Imagining Performed 09/14/24 07:38 CL Cath Imgs for PACS use only Routine Pending Results Patient Have Any Pending Studies at Discharge: No Discharge Instructions Given to Patient (Per Discharging Provider) Home Care: * Take your medications exactly as directed. Don't skip doses. * Remember that recovery after a heart attack takes time. Plan to rest for at lease 4-8 weeks while you recover. Then return to normal activity when your doctor says it's okay. * Ask your doctor about joining a heart rehabilitation program. * Tell your doctor if you are feeling depressed. Feelings of sadness are common after a heart attack, but it is important that you speak to someone if you are feeling overwhelmed by these feelings. * If you are having chest pain, call 911 for an ambulance. Do NOT drive yourself to the hospital. * Ask your family members to learn CPR. * Learn to take your own blood pressure and pulse. Keep a record of your results. Ask your doctor when you should seek emergency medical attention. He or she will tell you which blood pressure reading is dangerous. Lifestyle Changes: * Maintain a healthy weight. Get help to lose any extra pounds. * Cut back on salt. * Limit canned, dried, packaged, and fast foods. * Don't add salt to your food. * Season foods with herbs instead of salt when you cook. * Break the smoking habit. Enroll in a stop-smoking program to improve your chances of success. * Limit fatty foods. * Ask your doctor about having your lipid levels checked regularly. * Build up your activity according to your doctor's recommendation. * Ask your doctor when it's okay to resume sexual activity. * Tell your doctor about any erectile dysfunction (ED) medication you are taking. Some ED medications are not safe if you take certain heart medications. * Try to manage stress. Follow Up: It is important for you to keep your follow up appointments with your medical provider. Total Time Total Time Spent Total Time Spent (In Minutes): 32 Coding Level of Care Code 37712 INP/OBS DISCH >30 MIN Diagnoses Exertional chest pain R07.9 Type 2 diabetes mellitus E11.9 Hyperlipidemia E78.5 PEDRO (obstructive sleep apnea) G47.33 History of coronary artery disease Z86.79 BPH (benign prostatic hyperplasia) N40.0
[2024-09-14 16:42] VITALS: BP 110/67; PULSE 52
--- NOTE | 2024-09-14 17:15 | Cardiology Progress Note ---
Date of Service September 14, 2024 Assessment & Plan (1) Exertional chest pain: (2) History of coronary artery disease: (3) Hyperlipidemia: Plan 1. Exertional angina: Angiography did not reveal any critical stenoses. No in- stent restenosis. Symptoms likely related to some distal branch vessel disease involving the right coronary, PLB and a another PDA branch. These vessels are too small to accommodate any stent. Will intensify his medical therapy by doubling his isosorbide mononitrate. We have the option of increasing the amlodipine, carvedilol or adding Ranexa as well. 2. Coronary artery disease: Will continue dual antiplatelet therapy. He previously stopped his atorvastatin due to leg cramps. Will try pravastatin. We discussed injectable therapy which he would consider if pravastatin reproduced his prior cramping. 3. Hyperlipidemia: His lipids are well-controlled at the time of his last hospitalization. Unfortunately, he stopped statin therapy due to perceived side effects. We can discuss alternatives such as injectable therapy. 4. Aortic dilation: Noted on his echocardiogram, but a CTA performed in November of this year did not demonstrate any increased caliber of the aorta. Admission and Anticipated Discharge Date Admission Date: September 13, 2024 Subjective This afternoon the patient was feeling well. Good perfusion of the right hand. No pain at the access site. Has been ambulatory without recurrent chest pain. Review of Systems Review of Systems: Per HPI Physical Exam Physical Exam: The patient is alert and oriented. Mood and affect appeared normal. He answered all questions appropriately. HEENT: Pupils are equal and reactive to light and accommodation. Extraocular movements are intact. The sclerae are anicteric. Neuro: Cranial nerves intact Lungs: Clear to auscultation bilaterally. He has good air movement without use of accessory muscles. No rales wheezes or rhonchi. Cardiac: Heart demonstrates a regular rate and rhythm. Normal S1 and S2. No murmurs on examination. Pulses: The patient has palpable radial pulses bilaterally that are equal in intensity. Good perfusion of the right hand. Extremities: There was no evidence of hypoperfusion. There is no cyanosis or clubbing. There is no edema. Skin: I did not appreciate any rashes on examination today. ENMT: Mallampati Class: III Respiratory: normal respiratory effort Cardiovascular: Rate/Rhythm: regular rate Results & Data Vital Signs (Past 12 Hours) Vital Signs Temp Pulse Pulse Resp BP Pulse Ox O2 Del Method 11/25/24 15:54 36.7 C 52 L 18 110/67 94 Room Air 09/14/24 15:28 77 09/14/24 15:26 68 18 118/66 94 Room Air 09/14/24 14:54 76 18 124/71 95 Room Air 09/14/24 14:37 60 18 122/67 94 Room Air 09/14/24 14:24 57 L 16 107/69 94 Room Air 09/14/24 13:54 36.7 C 57 L 18 113/66 95 Room Air 09/14/24 13:05 63 16 97/63 L 95 Room Air 09/14/24 12:50 65 16 109/73 95 Room Air 09/14/24 12:35 48 L 16 116/75 95 Room Air 09/14/24 11:31 62 15 145/87 H 96 Room Air 09/14/24 11:02 36.8 C 69 19 125/71 95 Room Air 09/14/24 08:33 36.6 C 63 19 145/84 H 95 Room Air 09/14/24 07:25 60 Laboratory Results Abnormal Lab Results 09/13/24 09/14/24 09/14/24 18:29 00:46 06:30 WBC 9.13 RBC 5.20 Hgb 14.5 Hct 44.8 MCV 86.2 MCH 27.9 MCHC 32.4 RDW Std Deviation 41.2 RDW Coeff of Priscilla 13.2 Plt Count 193 MPV 10.9 Immature Gran % (Auto) 0.3 Neut % (Auto) 61.1 Lymph % (Auto) 26.1 [place] % (Auto) 10.0 Eos % (Auto) 2.2 Baso % (Auto) 0.3 Neut # (Auto) 5.58 Lymph # (Auto) 2.38 [place] # (Auto) 0.91 H Eos # (Auto) 0.20 Baso # (Auto) 0.03 Immature Gran # (Auto) 0.03 Sodium 143 Potassium 4.2 Chloride 109 H Carbon Dioxide 27 Anion Gap 7 BUN 13 Creatinine 0.71 Est Cr Clr Drug Dosing 150.8 eGFR 101.19 BUN/Creatinine Ratio 18.3 Glucose 106 H Calcium 9.4 Troponin I High Sens 6.3 7.3 6.8 Triglycerides 121 Cholesterol 152 LDL Cholesterol, Calc 94 VLDL Cholesterol, Calc 24 HDL Cholesterol 34 Cholesterol/HDL Ratio 4.5 Diagnostic Findings Cardiac catheterization performed today revealed patent stents in the right coronary and LAD. Some mild stenosis of the LAD prior to previously placed stents. Some distal disease involving the mid PLB and another posterolateral branch. PG Care Time/CCT Total # of Minutes Spent Total Time Spent with Patient: Total time spent is greater than 50% in coordination of care (as documented) at patient's floor/unit and/or counseling patient: Coding Level of Care Code 71547 SUB INP/OBS CARE 2/35MIN Diagnoses Exertional chest pain R07.9 History of coronary artery disease Z86.79 Hyperlipidemia E78.5
== END 2024-09-14 17:28 | disposition home or self-care (01) ==
LOC: SUATTDRO → ED 08:26 → 4W 08:26 → SUATTDRO 10:23 → 4W 13:08
DX: R07.89 Other chest pain; F17.290 Nicotine dependence, other tobacco product, uncomplicated; Z79.82 Long term (current) use of aspirin; E78.5 Hyperlipidemia, unspecified; E11.9 Type 2 diabetes mellitus without complications; Z79.899 Other long term (current) drug therapy; Z79.02 Long term (current) use of antithrombotics/antiplatelets; Z86.79 Personal history of other diseases of the circulatory system; N40.0 Benign prostatic hyperplasia without lower urinary tract symptoms; G47.33 Obstructive sleep apnea (adult) (pediatric)